=== PATIENT | female | born 1935 | race Caucasian/White ===

== ENCOUNTER 2019-01-26 13:16 | Emergency (ER) | payer OTHER ==
[2019-01-26 13:28] VITALS: BP 144/71; TEMP 97.5; BMI 24.5
--- NOTE | 2019-01-26 13:41 | ED.PDOC ---
General ED Provider: Dr. JOSE RODRIGUEZ Chief Complaint: Extremity Pain/Injury Stated Complaint: 83 YEARS OLD FEMALE REPORTS OF A 3 WEEKS ONGOING LEFT ARM NUMBESS AND PAIN. OT DENIED CHEST PAIN OR DISCOMFORT. NO INJURY IS REPORTED . PT IS NOT A DIABETIC Time Seen by Physician: 13:20 (CARMEN NICK R.N. PRESENT DURING THE EXAM AT ALL TIMES .PT DENIED FALL, INJURIES AND CHEST PAIN) Mode of Arrival: Walk-In Information Source: Patient Exam Limitations: No limitations (ON THE DAY OF THE VISIT THE LEFT UPPER EXT IS NEGATIVE FOR ANY NEUROVASCULAR ISSUES ) Primary Care Provider: ALYSSA GONZALEZ Nursing and Triage Documentation Reviewed and Agree: Yes Does patient meet sepsis criteria?: No System Inflammatory Response Syndrome: Not Applicable Sepsis Protocol: For patient's 13 years and over: Temp is 96.8 and below OR 101 and greater Pulse >90 BPM Resp >20/minute Acutely Altered Mental Status Are patient's symptoms suggestive of a new infection, such as: -Pneumonia -Skin, Soft Tissue -Endocarditis -UTI -Bone, Joint Infection -Implantable Device -Acute Abdominal Infection -Wound Infection -Meningitis -Blood Stream Catheter Infection -Unknown Musculoskeletal Complaint Exam - Upper Extremity Complaint/Exam Location of Pain: Reports: Left (ARM) Mechanism of Injury: Reports: No known trauma Onset/Duration: 21 DAYS Symptoms Are: Still present Timing: Constant Episodes Lasting: Weeks Initial Severity: Mild Current Severity: Mild Location: Reports: Discrete Character: Reports: Aching (, TINGLING NUMBNESS ) Aggravating: Reports: None Alleviating: Reports: None Related History: Reports: Similar episode (21 DAYS ) Non-Orthopedic Risk Factors: Reports: None DVT Risk Factors: Reports: None Septic Arthritis Risk Factors: Reports: Extremes of age Related Surgical History: Reports: None Upper Extremity Findings: Present: Tenderness. Absent: Swelling, Ecchymosis, Abnormal contour, Rotation, Ligamentous instability, Laceration, Erythema, Warmth, Blisters, Other joint pain, Foreign body, Limited range of motion Differential Diagnoses: Other (C/SPINE DISC DISEASE ) Review of Systems - Review Of Systems Constitutional: Reports: No symptoms Eyes: Reports: No symptoms Ears, Nose, Mouth, Throat: Reports: No symptoms Respiratory: Reports: No symptoms Cardiac: Reports: No symptoms GI: Reports: No symptoms : Reports: No symptoms Musculoskeletal: Reports: Other (C SPINE ) Skin: Reports: No symptoms Neurological: Reports: No symptoms Endocrine: Reports: No symptoms Hematologic/Lymphatic: Reports: No symptoms All Other Systems: Reviewed and Negative Past Medical History - Past Medical History Previously Healthy: Yes Endocrine: Reports: Hypothyroid, Dyslipidemia Cardiovascular: Reports: None Respiratory: Reports: None Hematological: Reports: None Gastrointestinal: Reports: None Genitourinary: Reports: None Neuro/Psych: Reports: None Musculoskeletal: Reports: None Cancer: Reports: None Last Menstrual Period: NA - Surgical History General Surgical History: Reports: None - Family History Family History: Reports: None - Social History Smoking Status: Former smoker Hx Substance Use: No Alcohol Screening: None Physical Exam - Physical Exam Appearance: Well-appearing, No pain distress, Well-nourished Eyes: JOSE MARTIN, EOMI, Conjunctiva clear ENT: Ears normal, Nose normal, Oropharynx normal Respiratory: Airway patent, Breath sounds clear, Breath sounds equal, Respirations nonlabored Cardiovascular: RRR, Pulses normal, No rub, No murmur GI/: Soft, Nontender, No masses, Bowel sounds normal, No Organomegaly Musculoskeletal: Normal strength (LEFT ARM DISTAL PULSES , RANGE OF MOTION ALL W.N.L. ), ROM intact, No edema, No calf tenderness Skin: Warm, Dry, Normal color Neurological: Sensation intact, Motor intact, Reflexes intact, Cranial nerves intact, Alert, Oriented Psychiatric: Affect appropriate, Mood appropriate Interpretation - Battery Vent Plug Inserter Rate: Normal Rhythm: Sinus Ectopy: None - EKG Interpretation Rate: Normal Rhythm: Sinus Ectopy: None (L.V.H) [place]: NL ST Segment: Normal Critical Care Note - Critical Care Note Total Time (mins): 0 Course - Course Orders, Labs, Meds: Orders Category Date Time Status EKG-(ED ONLY) Stat CARDIO 01/26/19 13:[address] CERVICAL SPINE W/O CONTRAST Stat RADS 01/26/19 13:37 Completed Vital Signs: Temp Pulse Resp BP Pulse Ox 01/26/19 13:18 97.5 F L 86 20 144/71 H 96 Departure - Departure Time of Disposition: 14:37 Disposition: HOME SELF-CARE Discharge Problem: Numbness and tingling in left arm Arm pain, chronic Qualifiers: Laterality: left Qualified Code(s): M79.602 - Pain in left arm Instructions: Paresthesia (ED), Arm Pain (ED) Condition: Good Pt referred to PMD for follow-up: Yes IPMP verified?: No Additional Instructions: Please call your Family Physician as soon as possible to schedule a follow-up appointment.SEE YOUR M.D.for follow up and M.R.I of the neck Allergies/Adverse Reactions: Allergies No Known Allergies Allergy (Verified 04/08/15 15:03) Home Medications: Ambulatory Orders Anastrozole [Arimidex] 1 mg PO DAILY 01/26/19 Levothyroxine Sodium [Synthroid] 50 mcg PO QDAC 01/26/19 Pravastatin Sodium [Pravachol] 40 mg PO BEDTIME 01/26/19 Disposition Discussed With: Patient
--- NOTE | 2019-01-26 14:19 | CT ---
EXAM: CT cervical spine without contrast. HISTORY: Arm numbness for 3 weeks COMPARISON: None TECHNIQUE: Serial axial images of the cervical spine were obtained from the skull base through the l su apices without contrast. These were viewed in multiple planes. FINDINGS: Vertebral bodies demonstrate no acute compression fracture or subluxation. There is strai ghtening of the cervical spine. There is multilevel disc space narrowing most pronounced from C5 thr ough at T2 with anterior posterior disc osteophytes. There is moderate facet arthropathy throughout the cervical spine. The odontoid process is intact with degenerative change at its articulation with C1. Posterior disc osteophyte and facet arthropathy at C4-C5 with moderate right neural foraminal narrowi ng. Disc space narrowing, posterior disc bulge and facet arthropathy at C5-C6 with moderate to sever e bilateral neural foraminal narrowing. IMPRESSION: 1. No acute compression fracture or subluxation. 2. 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 If further evaluatio n is clinically indicated, MRI may be obtained.
== END 2019-01-26 14:40 | disposition home or self-care (01) ==
LOC: ED 13:16
DX: R20.0 Anesthesia of skin (principal); M79.602 Pain in left arm; R20.2 Paresthesia of skin; E03.9 Hypothyroidism, unspecified; E78.5 Hyperlipidemia, unspecified; Z79.899 Other long term (current) drug therapy
CPT/HCPCS: 93005; 93010; 99283

== ENCOUNTER 2022-02-06 06:01 | Inpatient (IN) ==
--- NOTE | 2022-02-06 06:22 | ED.PDOC ---
General <BEN DOMINIQUE MD - Last Filed: 02/15/22 07:23> ED Provider: Dr. BEN DOMINIQUE Chief Complaint: Shortness of Air Stated Complaint: 3 days or so, getting worse today, cough, SOA, mild fever Time Seen by Provider: 02/06/22 06:21 Mode of Arrival: Walk-In Information Source: Patient and Family Exam Limitations: No limitations Primary Care Provider: ALYSSA GONZALEZ Nursing and Triage Documentation Reviewed and Agree: Yes Does patient meet sepsis criteria?: No System Inflammatory Response Syndrome: Not Applicable Sepsis Protocol: For patient's 13 years and over: Temp is 96.8 and below OR 101 and greater Pulse >90 BPM Resp >20/minute Acutely Altered Mental Status Are patient's symptoms suggestive of a new infection, such as: -Pneumonia -Skin, Soft Tissue -Endocarditis -UTI -Bone, Joint Infection -Implantable Device -Acute Abdominal Infection -Wound Infection -Meningitis -Blood Stream Catheter Infection -Unknown Respiratory Complaint Exam <BEN DOMINIQUE MD - Last Filed: 02/15/22 07:23> Shortness of Air Complaint/Exam Onset/Duration: 3 d Symptoms Are: Worse Timing: Constant Initial Severity: Mild Current Severity: Moderate Character: Reports Dyspnea at rest and Dyspnea on exertion Aggravating: Reports Deep breaths and Recumbent position Alleviating: Reports Upright position Associated Signs and Symptoms: Reports Cough, Fever, Nasal congestion and Labored breathing History of Healthcare-Acquired Pneumonia: No Pulmonary Embolism Risk Factors: Reports None Cardiac Risk Factors: Reports None Pseudomonas Risk Factors: Reports None Tuberculosis Risk Factors: Reports None Home Oxygen Use: No Recent Stress Test: No Recent Echo/LV Function: No Respiratory Distress: Moderate Stridor Present: No Tracheal Deviation: No Subcutaneous Emphysema: No Accessory Muscle Use: No Retractions: Not Present Diminished Breath Sounds: Yes Prolonged Expiratory Phase: No Unable to Speak Full Sentences: No Fatigue: Yes Leg Swelling: No Beronica's Sign Present: No Grunting Respirations: No Kussmaul Respirations: No Review of Systems <BEN DOMINIQUE MD - Last Filed: 02/15/22 07:23> Review Of Systems Constitutional: Reports Fever, Malaise and Weakness Eyes: Reports No symptoms Ears, Nose, Mouth, Throat: Reports No symptoms Respiratory: Reports Cough and Short of air Cardiac: Reports No symptoms GI: Reports No symptoms : Reports No symptoms Skin: Reports No symptoms Neurological: Reports No symptoms Endocrine: Reports No symptoms Hematologic/Lymphatic: Reports No symptoms All Other Systems: Reviewed and Negative PFSH <BEN DOMINIQUE MD - Last Filed: 02/15/22 07:23> Medical History (Updated 02/08/22 @ 14:05 by PANCHO ARANA) Chronic sinusitis Dementia Dyslipidemia Hypothyroidism Family History (Updated 02/06/22 @ 11:52 by PENG TEIXEIRA, RN) FATHER Myocardial infarct Social History (Updated 02/06/22 @ 11:53 by PENG TEIXEIRA, RN) Alcohol intake: never Surgical History (Updated 02/08/22 @ 08:30 by HARITHA GONZALEZ) History of hysterectomy for cancer Female Reproductive History Menstrual Hx Hysterectomy: No Hx Tubal Ligation: No Physical Exam <BEN DOMINIQUE MD - Last Filed: 02/15/22 07:23> Physical Exam Appearance: Reports Ill-appearing Ill-appearing: Moderate Pain Distress: None Eyes: Reports JOSE MARTIN ENT: Reports Oropharynx normal Neck: Supple Respiratory: Reports Airway patent and Rhonchi Cardiovascular: Reports RRR and Pulses normal GI/: Reports Soft and Nontender Musculoskeletal: Reports Normal strength, ROM intact and No edema Skin: Reports Warm and Dry Neurological: Reports Sensation intact, Motor intact and Alert Psychiatric: Reports Affect appropriate and Mood appropriate Physician Notification <BEN DOMINIQUE MD - Last Filed: 02/15/22 07:23> Case Discussed Endorsed To/Discussed With: Dr. Arreaga Time of Discussion: 07:00 Critical Care Note <BEN DOMINIQUE MD - Last Filed: 02/15/22 07:23> Critical Care Note Total Critical Care Time (mins): 0 Course <BEN DOMINIQUE MD - Last Filed: 02/15/22 07:23> Course Hematology/Chemistry: 02/09/22 04:55 02/09/22 04:55 Orders, Labs, Meds: Lab Review 02/06/22 02/06/22 02/06/22 06:10 06:25 06:25 WBC RBC Hgb Hct MCV MCH MCHC RDW Coeff of Mariah Plt Count Immature Gran % (Auto) Neut % (Auto) Lymph % (Auto) [place] % (Auto) Eos % (Auto) Baso % (Auto) Neut # (Auto) Lymph # (Auto) [place] # (Auto) Eos # (Auto) Baso # (Auto) Immature Gran # (Auto) Puncture Site Base Excess O2 Saturation ABG pH ABG pCO2 ABG pO2 ABG HCO3 ABG Total CO2 Jorge Test Hemoglobin Oxyhemoglobin Carboxyhemoglobin Total Hemoglobin FiO2 % Sodium Potassium Chloride Carbon Dioxide Anion Gap BUN Creatinine Estimated GFR (MDRD) BUN/Creatinine Ratio Glucose Calcium Total Bilirubin AST ALT Alkaline Phosphatase Troponin I NT-Pro-B Natriuret Pep Total Protein Albumin Globulin Albumin/Globulin Ratio Urine Color Yellow Urine Clarity Clear Urine pH 5.5 Ur Specific [place] >=1.030 Urine Protein Negative Urine Glucose (UA) Negative Urine Ketones Negative Urine Blood 1+ H Urine Nitrite Positive H Urine Bilirubin Negative Urine Urobilinogen 0.2 Ur Leukocyte Esterase 1+ H Urine Microscopic RBC 5-10 Urine Microscopic WBC 30-50 Ur Squamous Epith Cells 30-50 Urine Bacteria 4+ Urine Mucus 1+ Influ A Molecular Assay Negative by naat Influ B Molecular Assay Negative by naat SARS-CoV-2 Ag (Rapid) Negative 02/06/22 02/06/22 02/06/22 06:37 06:37 06:37 WBC 8.46 RBC 4.06 L Hgb 12.6 Hct 37.7 MCV 92.9 MCH 31.0 MCHC 33.4 RDW Coeff of Mariah 12.7 Plt Count 297 Immature Gran % (Auto) 0.2 Neut % (Auto) 74.2 Lymph % (Auto) 15.0 [place] % (Auto) 9.6 Eos % (Auto) 0.5 Baso % (Auto) 0.5 Neut # (Auto) 6.3 Lymph # (Auto) 1.3 [place] # (Auto) 0.8 Eos # (Auto) 0.0 Baso # (Auto) 0.0 Immature Gran # (Auto) 0.0 Puncture Site Base Excess O2 Saturation ABG pH ABG pCO2 ABG pO2 ABG HCO3 ABG Total CO2 Jorge Test Hemoglobin Oxyhemoglobin Carboxyhemoglobin Total Hemoglobin FiO2 % Sodium 138.0 Potassium 3.45 L Chloride 108.2 H Carbon Dioxide 21.2 L Anion Gap 12.05 BUN 21.0 H Creatinine 0.66 Estimated GFR (MDRD) 85.00 BUN/Creatinine Ratio 31.81 Glucose 144.4 H Calcium 9.29 Total Bilirubin 0.55 AST 26.7 ALT 19.9 Alkaline Phosphatase 71.8 Troponin I < 0.012 NT-Pro-B Natriuret Pep 282.000 Total Protein 7.27 Albumin 4.24 Globulin 3.03 Albumin/Globulin Ratio 1.39 Urine Color Urine Clarity Urine pH Ur Specific [place] Urine Protein Urine Glucose (UA) Urine Ketones Urine Blood Urine Nitrite Urine Bilirubin Urine Urobilinogen Ur Leukocyte Esterase Urine Microscopic RBC Urine Microscopic WBC Ur Squamous Epith Cells Urine Bacteria Urine Mucus Influ A Molecular Assay Influ B Molecular Assay SARS-CoV-2 Ag (Rapid) 02/06/22 07:02 WBC RBC Hgb Hct MCV MCH MCHC RDW Coeff of Mariah Plt Count Immature Gran % (Auto) Neut % (Auto) Lymph % (Auto) [place] % (Auto) Eos % (Auto) Baso % (Auto) Neut # (Auto) Lymph # (Auto) [place] # (Auto) Eos # (Auto) Baso # (Auto) Immature Gran # (Auto) Puncture Site Rb Base Excess -2.3 L O2 Saturation 98.4 H ABG pH 7.55 H* ABG pCO2 23.0 L ABG pO2 98.0 ABG HCO3 20.1 L ABG Total CO2 20.8 Jorge Test + Hemoglobin 1.4 Oxyhemoglobin 95.8 Carboxyhemoglobin 1.9 H Total Hemoglobin 12.6 FiO2 % 21.0 Sodium Potassium Chloride Carbon Dioxide Anion Gap BUN Creatinine Estimated GFR (MDRD) BUN/Creatinine Ratio Glucose Calcium Total Bilirubin AST ALT Alkaline Phosphatase Troponin I NT-Pro-B Natriuret Pep Total Protein Albumin Globulin Albumin/Globulin Ratio Urine Color Urine Clarity Urine pH Ur Specific [place] Urine Protein Urine Glucose (UA) Urine Ketones Urine Blood Urine Nitrite Urine Bilirubin Urine Urobilinogen Ur Leukocyte Esterase Urine Microscopic RBC Urine Microscopic WBC Ur Squamous Epith Cells Urine Bacteria Urine Mucus Influ A Molecular Assay Influ B Molecular Assay SARS-CoV-2 Ag (Rapid) Orders Category Date Time Status ADMIT PATIENT INPATIENT .TO [facility] (MONITORED BED) ADMISSION 02/06/22 10:56 Completed ABG DRAW REQUEST Stat CARDIO 02/06/22 06:27 Completed EKG-(ED ONLY) Stat CARDIO 02/06/22 06:28 Completed ACTIVITY .Up With Assistance CARE 02/06/22 11:01 Completed INTAKE & OUTPUT Q8HR CARE 02/06/22 10:58 Completed IP: INSERT SALINE LOCK ONCE CARE 02/06/22 10:58 Completed TELEMETRY MONITORING TELE CARE 02/06/22 10:58 Completed VITAL SIGNS Q8HR CARE 02/06/22 10:58 Completed ABG COOX Stat LAB 02/06/22 07:02 Completed CBC W/ AUTO DIFF DAILY@0600 LAB 02/07/22 04:57 Completed CBC W/ AUTO DIFF DAILY@0600 LAB 02/08/22 05:00 Completed CBC W/ AUTO DIFF Stat LAB 02/06/22 06:37 Completed COMPREHENSIVE METABOLIC PANEL DAILY@0600 LAB 02/07/22 04:57 Completed COMPREHENSIVE METABOLIC PANEL DAILY@0600 LAB 02/08/22 05:00 Completed COMPREHENSIVE METABOLIC PANEL Stat LAB 02/06/22 06:37 Completed COVID-19 ANTIGEN TEST Stat LAB 02/06/22 06:25 Completed FLU A/B MOLECULAR Stat LAB 02/06/22 06:25 Completed MOLECULAR GROUP A STREP Stat LAB 02/06/22 06:25 Completed NT-PROBNP Stat LAB 02/06/22 06:37 Completed TROPONIN I Stat LAB 02/06/22 06:37 Completed URINALYSIS C & S IF INDICATED Stat LAB 02/06/22 06:10 Completed URINE CULTURE Stat LAB 02/06/22 06:10 Completed Acetaminophen [Tylenol] MEDS 02/06/22 08:00 Discontinued 650 mg PO ONCE ONE Acetaminophen [Tylenol] MEDS 02/06/22 11:01 Discontinued 650 mg PO Q8H PRN Ceftriaxone/D5w 1 gm Premix [Rocephin 1 gm/50 ml D5w] MEDS 02/07/22 09:00 Discontinued 1 gm in 50 ml IV DAILY Ceftriaxone/D5w 1 gm Premix [Rocephin 1 gm/50 ml D5w] MEDS 02/06/22 08:00 Disc ontinued 1 gm in 50 ml IV ONCE Potassium Chloride [K-Dur] MEDS 02/06/22 08:00 Discontinued 20 meq PO ONCE ONE Prednisone MEDS 02/06/22 11:30 Discontinued 20 mg PO DAILYWM Ringers Lactated Solution [Lactated Ringers] 1,000 ml MEDS 02/06/22 08:00 Discontinued IV BOLUS Sodium Chloride 0.9% [Sodium Chloride] 1,000 ml MEDS 02/06/22 11:30 Discontinued IV 75 mls/hr RESUSCITATION STATUS Routine OTHERS 02/06/22 10:56 Completed CHEST, 1V AP ONLY Stat RADS 02/06/22 06:24 Completed Medications Discontinued Medications Generic Name Dose Route Start Last Admin Trade Name Freq PRN Reason Stop Dose Admin Acetaminophen 650 mg 02/06/22 08:00 02/06/22 08:18 Acetaminophen 325 Mg Tablet PO 02/06/22 08:01 650 mg ONCE ONE Administration Acetaminophen 650 mg 02/06/22 11:01 Acetaminophen 325 Mg Tablet PO Q8H PRN Mild Pain Alprazolam 0.25 mg 02/08/22 20:00 02/08/22 20:44 Alprazolam 0.25 Mg Tablet PO 0.25 mg DAILY PRN Administration Anxiety Anastrozole 1 mg 02/07/22 09:00 02/09/22 09:29 Anastrozole 1 Mg Tablet PO 1 mg DAILY VALERIE Administration Dexamethasone Sodium Phosphate 4 mg 02/08/22 08:38 02/08/22 09:50 Dexamethasone Sod Phos 4 Mg/Ml Inj IM 02/08/22 08:39 4 mg ONCE ONE Administration Fluticasone Propionate 2 spray 02/08/22 10:30 02/09/22 09:29 Fluticasone Propionate 16 Gm Nasal [place] VALE 2 spray BID VALERIE Administration Guaifenesin 600 mg 02/08/22 09:00 02/09/22 09:29 Guaifenesin 600 Mg Tablet.Er PO 600 mg Q12HR VALERIE Administration CEFTRIAXONE/D5W 1 GM PREMIX 1 gm in 50 mls @ 75 mls/hr 02/06/22 08:00 02/06/22 08:13 Rocephin 1 Gm/50 Ml D5w IV 02/06/22 08:39 75 mls/hr ONCE ONE Administration Lactated Ringer's 1,000 mls @ 500 mls/hr 02/06/22 08:00 02/06/22 08:14 Lactated Ringers IV 02/06/22 09:59 500 mls/hr BOLUS STA Administration Sodium Chloride 1,000 mls @ 75 mls/hr 02/06/22 11:30 02/07/22 01:21 Sodium Chloride IV 75 mls/hr .[id number] VALERIE Administration CEFTRIAXONE/D5W 1 GM PREMIX 1 gm in 50 mls @ 75 mls/hr 02/07/22 09:00 02/09/22 09:29 Rocephin 1 Gm/50 Ml D5w IV 02/10/22 08:59 75 mls/hr DAILY VALERIE Administration Levothyroxine Sodium 50 mcg 02/07/22 06:30 02/09/22 05:52 Levothyroxine Sodium 50 Mcg Tablet PO 50 mcg QDAC VALERIE Administration Potassium Chloride 20 meq 02/06/22 08:00 02/06/22 08:13 Potassium Chloride 20 Meq Tab PO 02/06/22 08:01 20 meq ONCE ONE Administration Pravastatin Sodium 40 mg 02/06/22 21:00 02/08/22 20:28 Pravastatin Sodium 40 Mg Tablet PO 40 mg BEDTIME VALERIE Administration Prednisone 20 mg 02/06/22 11:30 02/09/22 09:29 Prednisone 20 Mg Tablet PO 20 mg DAILYWM VALERIE Administration Sodium Chloride 1 syr 02/07/22 21:00 02/09/22 13:41 0.9% Sodium Chloride 10 Ml Disp.Syrin IVF 1 syr Q8HR VALERIE Administration Vital Signs: Temp Pulse Resp BP Pulse Ox 02/06/22 09:35 98.9 F 79 18 119/72 96 02/06/22 08:41 82 19 132/75 100 02/06/22 06:04 100.8 F H 117 H 24 175/79 H 96 Discharge Plan Discharge Patient Disposition: ADMITTED INPATIENT Discharge Problem: UTI (urinary tract infection) ED Provider: YESSENIA ARREAGA Condition: Stable <BEN DOMINIQUE MD - Last Filed: 02/15/22 07:23> Physician Progress Note: [Turned over to next ER physician, Dr. Arreaga.]
[2022-02-06 06:41] LABS: BASOPHILS % (AUTO) 0.5 % (0.0-3.0); EOSINOPHILS % (AUTO) 0.5 % (0.0-7.0); HEMATOCRIT 37.7 % (37.0-47.0); HEMOGLOBIN 12.6 g/dl (12.0-16.0); IMMATURE GRANULOCYTE % (AUTO) 0.2 % (0.0-5.0); LYMPHOCYTES # (AUTO) 1.3 K/uL (0.60-3.4); MEAN CORPUSCULAR HGB CONC 33.4 (31.8-35.4); MEAN CORPUSCULAR VOLUME 92.9 fl (81.0-99.0); MONOCYTES # (AUTO) 0.8 K/uL (0.4-2.0); MONOCYTES % (AUTO) 9.6 (0-10); NEUTROPHILS # (AUTO) 6.3 K/ul (2.0-6.9); NEUTROPHILS % (AUTO) 74.2 % (42.2-75.2); PLATELET COUNT 297 10^3/uL (140-440); RDW COEFFICIENT OF VARIATION 12.7 % (11.6-14.8); RED BLOOD COUNT 4.06 10^6/ul (4.20-5.40); WHITE BLOOD COUNT 8.46 K/ul (4.6-10.2)
[2022-02-06 06:49] LABS: BILIRUBIN,URINE Negative (NEGATIVE); CLARITY,URINE Clear (CLEAR); COLOR,URINE Yellow (YELLOW); GLUCOSE, URINE (UA) Negative (NEGATIVE); KETONES,URINE Negative (NEGATIVE); LEUKOCYTE ESTERASE ,URINE 1+ (NEGATIVE); NITRITE,URINE Positive (NEGATIVE); PH,URINE 5.5 (5-9); PROTEIN,URINE Negative (NEGATIVE); URINE, BLOOD 1+ (NEGATIVE); UROBILINOGEN,URINE 0.2 (0.2)
[2022-02-06 06:50] LABS: MOLECULAR FLU A NEGATIVE BY NAAT (NEGATIVE); MOLECULAR FLU B NEGATIVE BY NAAT (NEGATIVE)
[2022-02-06 06:53] LABS: BACTERIA,URINE 4+ (NOT PRESENT); MUCUS,URINE 1+ (NOT PRESENT); SQUAMOUS EPITHELIAL CELL,UR 30-50 (0-5); URINE WBC, MICROSCOPIC 30-50 (0-2)
[2022-02-06 06:54] LABS: ALANINE AMINOTRANSFERASE 19.9 U/L (0-35); ALBUMIN 4.24 g/dL (3.5-5.0); ALKALINE PHOSPHATASE 71.8 U/L (53-141); ASPARTATE AMINO TRANSFERASE 26.7 U/L (14-36); BILIRUBIN,TOTAL 0.55 mg/dL (0.2-1.3); CALCIUM 9.29 mg/dL (8.4-10.2); CARBON DIOXIDE 21.2 mmol/L (22-30.0); CHLORIDE 108.2 mmol/L (98-107); CREATININE 0.66 mg/dL (0.60-1.30); GLUCOSE 144.4 mg/dL (74-106); POTASSIUM 3.45 mmol/L (3.5-5.1); TOTAL PROTEIN 7.27 g/dL (6.3-8.2)
[2022-02-06 07:06] LABS: TROPONIN I < 0.012 ng/ml (0.0000-0.120)
[2022-02-06 07:15] LABS: ABG O2 HGB 95.8 % (95-100); BEecf -2.3 (-2.0-3.0); COHb 1.9 (0.5-1.5); HCO3 20.1 (21-28); MetHb 1.4 (0-1.5); TCO2 20.8 (19-24); sO2 98.4 % (94-98); tHb 12.6 g/dl (11.7-17.4)
--- NOTE | 2022-02-06 07:17 | DI ---
Examination: Single view chest. HISTORY: Dyspnea. COMPARISON: 03/10/2021. FINDINGS: Relative low lung volumes with elevation of the right hemidiaphragm. The cardiomediastina l silhouette appears mildly enlarged. There is no pulmonary edema. Atherosclerosis. Surgical clips project in the left chest and left axilla. Old granulomatous disease. No acute consolidation. No significant pleural effusion. Cholecystectomy clips. Scoliosis and degenerative changes in the spin e. Abdominal aortic atherosclerosis also noted. Osseous structures are without significant abnormali ty. IMPRESSION: No acute cardiopulmonary abnormality. Mild cardiac enlargement with atherosclerosis. Old granulomatous disease. Elevation of the right hemidiaphragm. Postsurgical changes to the left chest wall and axilla.
[2022-02-06 07:18] LABS: ABG PH 7.55 (7.35-7.45)
[2022-02-06] MEDS ORDERED: LACTATED RINGERS 1,000 ML IV STA (08:00)
[2022-02-06] MEDS ORDERED: TYLENOL PO ONE (08:00)
[2022-02-06] MEDS ORDERED: ROCEPHIN 1 GM/50 ML D5W 1 GM/50 ML BAG IV ONE (08:00)
[2022-02-06] MEDS ORDERED: K-DUR PO ONE (08:00)
[2022-02-06] MEDS ORDERED: TYLENOL PO PRN (11:01)
[2022-02-06 11:46] VITALS: BMI 21.6
[2022-02-06] MEDS: SODIUM CHLORIDE 1,000 ML IV SCH (13:40)
[2022-02-06] MEDS: PREDNISONE PO SCH (13:41)
[2022-02-06] MEDS: PRAVACHOL PO SCH (21:36)
[2022-02-07] MEDS: SODIUM CHLORIDE 1,000 ML IV SCH (01:21)
[2022-02-07 05:23] LABS: BASOPHILS % (AUTO) 0.2 % (0.0-3.0); HEMATOCRIT 36.8 % (37.0-47.0); IMMATURE GRANULOCYTE % (AUTO) 0.3 % (0.0-5.0); LYMPHOCYTES # (AUTO) 2.4 K/uL (0.60-3.4); LYMPHOCYTES % (AUTO) 20.7 (10.0-50.0); MEAN CORPUSCULAR HEMOGLOBIN 30.5 pg (27.0-31.0); MEAN CORPUSCULAR HGB CONC 32.6 (31.8-35.4); MEAN CORPUSCULAR VOLUME 93.6 fl (81.0-99.0); MONOCYTES % (AUTO) 8.6 (0-10); NEUTROPHILS # (AUTO) 8.1 K/ul (2.0-6.9); NEUTROPHILS % (AUTO) 70.2 % (42.2-75.2); PLATELET COUNT 314 10^3/uL (140-440); RDW COEFFICIENT OF VARIATION 12.9 % (11.6-14.8); RED BLOOD COUNT 3.93 10^6/ul (4.20-5.40); WHITE BLOOD COUNT 11.51 K/ul (4.6-10.2)
[2022-02-07] MEDS: SYNTHROID PO SCH (05:48)
[2022-02-07 06:25] LABS: ALANINE AMINOTRANSFERASE 17.5 U/L (0-35); ALBUMIN 3.68 g/dL (3.5-5.0); ALKALINE PHOSPHATASE 64.7 U/L (53-141); ASPARTATE AMINO TRANSFERASE 25.2 U/L (14-36); BILIRUBIN,TOTAL 0.46 mg/dL (0.2-1.3); BLOOD UREA NITROGEN 13.5 mg/dL (7-17); CALCIUM 8.92 mg/dL (8.4-10.2); CARBON DIOXIDE 21.4 mmol/L (22-30.0); CHLORIDE 111.1 mmol/L (98-107); CREATININE 0.57 mg/dL (0.60-1.30); POTASSIUM 4.3 mmol/L (3.5-5.1); SODIUM 136.8 mmol/L (134.5-145); TOTAL PROTEIN 6.49 g/dL (6.3-8.2)
[2022-02-07] MEDS: ROCEPHIN 1 GM/50 ML D5W 1 GM/50 ML BAG IV SCH (08:27)
[2022-02-07] MEDS: PREDNISONE PO SCH (08:27)
[2022-02-07] MEDS: ARIMIDEX PO SCH (08:27)
[2022-02-07] MEDS: PRAVACHOL PO SCH (21:24)
[2022-02-08 05:38] LABS: BASOPHILS % (AUTO) 0.2 % (0.0-3.0); EOSINOPHILS % (AUTO) 0.2 % (0.0-7.0); HEMOGLOBIN 12.4 g/dl (12.0-16.0); IMMATURE GRANULOCYTE % (AUTO) 0.3 % (0.0-5.0); LYMPHOCYTES # (AUTO) 3.3 K/uL (0.60-3.4); MEAN CORPUSCULAR HEMOGLOBIN 30.8 pg (27.0-31.0); MEAN CORPUSCULAR HGB CONC 32.6 (31.8-35.4); MEAN CORPUSCULAR VOLUME 94.5 fl (81.0-99.0); MONOCYTES # (AUTO) 1.2 K/uL (0.4-2.0); MONOCYTES % (AUTO) 9.3 (0-10); NEUTROPHILS # (AUTO) 8.2 K/ul (2.0-6.9); PLATELET COUNT 332 10^3/uL (140-440); RDW COEFFICIENT OF VARIATION 13.2 % (11.6-14.8); RED BLOOD COUNT 4.02 10^6/ul (4.20-5.40); WHITE BLOOD COUNT 12.73 K/ul (4.6-10.2)
[2022-02-08] MEDS: SYNTHROID PO SCH (05:52)
[2022-02-08 05:55] LABS: ALANINE AMINOTRANSFERASE 22.2 U/L (0-35); ALBUMIN 3.99 g/dL (3.5-5.0); ALKALINE PHOSPHATASE 57.7 U/L (53-141); ASPARTATE AMINO TRANSFERASE 31.1 U/L (14-36); BILIRUBIN,TOTAL 0.4 mg/dL (0.2-1.3); BLOOD UREA NITROGEN 17.9 mg/dL (7-17); CALCIUM 9.15 mg/dL (8.4-10.2); CARBON DIOXIDE 22.6 mmol/L (22-30.0); CHLORIDE 109.3 mmol/L (98-107); CREATININE 0.62 mg/dL (0.60-1.30); GLUCOSE 105.7 mg/dL (74-106); POTASSIUM 4.01 mmol/L (3.5-5.1); SODIUM 136.8 mmol/L (134.5-145); TOTAL PROTEIN 7.01 g/dL (6.3-8.2)
[2022-02-08] MEDS ORDERED: DECADRON IM ONE (08:38)
--- NOTE | 2022-02-08 08:58 | PCM.PROG ---
Attending Provider: ATTENDING PROVIDER: Dr. ALYSSA GONZALEZ This patient is seen with Char Linder, Nurse Practitioner. DATE OF SERVICE: 02/08/22 SUBJECTIVE: This 86 year old /WHITE F was hospitalized 02/06/22. The patient is pleasantly confused this morning. Little bit of a cough. No fever. Complaining of sinus drainage. REVIEW OF SYSTEMS: CONSTITUTIONAL: No night sweats. No fatigue, malaise, lethargy. No fever or chills. HEENT: Eyes: No visual changes. No eye pain. No eye discharge. ENT: No runny nose. No epistaxis. Sinus drainage. No odynophagia. No congestion. RESPIRATORY: Cough, no congestion. No hemoptysis. No shortness of breath. Hard of hearing. CARDIOVASCULAR: No angina symptoms. No CHF symptoms. No atypical chest pain for CAD. No palpitations. No orthopnea.. GASTROINTESTINAL: No abdominal pain. No nausea or vomiting. No diarrhea or constipation. No hematemesis. No hematochezia. GENITOURINARY: No urgency. No frequency. No dysuria. No hematuria. No obstructive symptoms. No discharge. No pain. No significant abnormal bleeding. MUSCULOSKELETAL: No musculoskeletal pain; no joint swelling. NEUROLOGICAL: Awake, alert, intermittent confusion. No headache. No neck pain. No syncope. No seizures. No dizziness. PSYCHIATRIC: Not anxious. No depression. No suicidal thoughts. No homicidal thoughts. SKIN: No rash. No lesions. No wounds. ENDOCRINE: No unexplained weight loss. No weight gain. HEMATOLOGIC/LYMPHATIC: No anemia. No purpura. No petechiae. No prolonged or excessive bleeding. No palpable lymph nodes. PHYSICAL EXAMINATION: GENERAL: The patient is awake, alert and oriented to person and place, sitting in bed in no distress. VITAL SIGNS: Temperature 97.8 F, Pulse 93, Respiratory Rate 16, BP 142/81, Pulse Ox 97% HEENT: Head normocephalic, atraumatic. Eyes: Extraocular muscles are intact. Pupils are equal, round and reactive to light and accommodation. Ears: No lesions. Nose appeared normal. Throat: No exudate or erythema. NECK: Supple. No JVD, no carotid bruit. No lymphadenopathy or thyromegaly. LUNGS: Diminished breath sounds. Clear to auscultation. Percussion note normal. Chest symmetrical. HEART: S1, S2, no S3. No murmurs. No cyanosis or clubbing. No ascites. Pulses: Dorsalis pedis and posterior tibial pulses +1 to +2 both sides. ABDOMEN: Soft. Non-tender. Bowel sounds active. No CVA tenderness. No mass felt. EXTREMITIES: No edema. Full range of motion of all extremities, equal. NEUROLOGIC: No focal deficit. Cranial nerves II through XII are grossly intact. No headache. No double vision. SKIN: Not dry. Intact. Turgor-normal. LYMPHATIC: No palpable lymph nodes/no lymphedema. MUSCULOSKELETAL: Normal joints with no swelling. Muscle tone is normal. LAB REVIEW: 02/08/22 05:00 02/08/22 05:00 02/08/22 05:00: Sodium 136.8, Potassium 4.01, Chloride 109.3 H, Carbon Dioxide 22.6, Anion Gap 8.91, BUN 17.9 H, Creatinine 0.62, Estimated GFR (MDRD) 91.00, BUN/Creatinine Ratio 28.87, Glucose 105.7, Calcium 9.15, Total Bilirubin 0.40, AST 31.1, ALT 22.2, Alkaline Phosphatase 57.7, Total Protein 7.01, Albumin 3.99, Globulin 3.02, Albumin/Globulin Ratio 1.32 02/08/22 05:00: WBC 12.73 H, RBC 4.02 L, Hgb 12.4, Hct 38.0, MCV 94.5, MCH 30.8, MCHC 32.6, RDW Coeff of Mariah 13.2, Plt Count 332, Immature Gran % (Auto) 0.3, Neut % (Auto) 64.0, Lymph % (Auto) 26.0, [place] % (Auto) 9.3, Eos % (Auto) 0.2, Baso % (Auto) 0.2, Neut # (Auto) 8.2 H, Lymph # (Auto) 3.3, [place] # (Auto) 1.2, Eos # (Auto) 0.0, Baso # (Auto) 0.0, Immature Gran # (Auto) 0.0 ASSESSMENT: Please see below. 1. UTI positive e-coli 2. Acute sinusitis 3. Dementia 4. Dehydration, improved PLAN: 1. Quaifenesin BID 2. 4mg Decadron IM 3. T4 TSH 4. Respiratory panel Plan and coordination of the patient's care discussed in the presence of Construction Mill[employer] and nurse. SCRIBED BY: Silva SCHMIDTist scribed while in presence of service performed by Dr. Gonzalez/Char Linder APRN on 02/08/22 ([id number])
[2022-02-08] MEDS: PREDNISONE PO SCH (09:30)
[2022-02-08] MEDS: ARIMIDEX PO SCH (09:30)
[2022-02-08] MEDS: ROCEPHIN 1 GM/50 ML D5W 1 GM/50 ML BAG IV SCH (09:32)
[2022-02-08] MEDS: MUCINEX PO SCH ×2 (09:45→20:28)
[2022-02-08 09:47] LABS: BORDETELLA PARAPERTUSSIS (PCR) NOT DETECTED (NOT DETECT); BORDETELLA PERTUSSIS (PCR) NOT DETECTED (NOT DETECT); CHLAMYDIA PNEUMONIAE (PCR) NOT DETECTED (NOT DETECT); CORONAVIRUS 229E (PCR) NOT DETECTED (NOT DETECT); CORONAVIRUS HKU1 (PCR) NOT DETECTED (NOT DETECT); CORONAVIRUS NL63 (PCR) NOT DETECTED (NOT DETECT); CORONAVIRUS OC43 (PCR) NOT DETECTED (NOT DETECT); HUMAN METAPNEUMOVIRUS (PCR) NOT DETECTED (NOT DETECT); HUMAN RHINOVIRUS/ENTEROV (PCR) NOT DETECTED (NOT DETECT); INFLUENZA B (PCR) NOT DETECTED (NOT DETECT); MYCOPLASMA PNEUMONIAE (PCR) NOT DETECTED (NOT DETECT); PARAINFLUENZA VIRUS 1 (PCR) NOT DETECTED (NOT DETECT); PARAINFLUENZA VIRUS 2 (PCR) NOT DETECTED (NOT DETECT); PARAINFLUENZA VIRUS 3 (PCR) NOT DETECTED (NOT DETECT); PARAINFLUENZA VIRUS 4 (PCR) NOT DETECTED (NOT DETECT); RESPIRATORY SYNCYTIAL V (PCR) NOT DETECTED (NOT DETECT); SARS_COV_2 (PCR) NOT DETECTED (NOT DETECT)
[2022-02-08 10:37] LABS: ADENOVIRUS (PCR) NOT DETECTED (NOT DETECT)
[2022-02-08] MEDS: FLONASE NAS SCH ×2 (11:24→20:28)
--- NOTE | 2022-02-08 11:26 | HP ---
DATE OF SERVICE: 02/06/22 REASON FOR HOSPITALIZATION: Urinary tract infection, sinusitis, fever, weakness and confusion HISTORY OF PRESENT ILLNESS: 86 year old white female was brought to the emergency room by a friend because of the patient having sinus type of headache, UTI on further investigation and has been more confused with fatigue and weakness. Duration of symptoms is 3-4 days. It is to be noted that the patient is confused but very poor historian. PAST MEDICAL HISTORY/PAST SURGICAL HISTORY: History of C of the breast Hypothyroidism Hyperlipidemia Dementia REVIEW OF SYSTEMS: CONSTITUTIONAL: No night sweats. Fatigue and weakness. No fever or chills. HEENT: Eyes: No visual changes. No eye pain. No eye discharge. ENT: No runny nose. No epistaxis. Sinus drainage. No sore throat. No odynophagia. No ear pain. No congestion. RESPIRATORY: Mild cough, no congestion. No hemoptysis. No shortness of breath. CARDIOVASCULAR: No angina symptoms. No CHF symptoms. No atypical chest pain for CAD. No palpitations. No PND. No orthopnea. GASTROINTESTINAL: No abdominal pain. No nausea or vomiting. No diarrhea or constipation. No hematemesis. No hematochezia. Poor appetite. GENITOURINARY: No urgency. No frequency. No dysuria. No hematuria. No obstructive symptoms. No discharge. No pain. No significant abnormal bleeding. MUSCULOSKELETAL: No musculoskeletal pain. No joint swelling. No arthritis. Generalized weakness. NEUROLOGICAL: No headache. No neck pain. No syncope. No seizures. No dizziness. PSYCHIATRIC: Not anxious. No depression. No suicidal thoughts. No homicidal thoughts. SKIN: No rash. No lesions. No wounds. ENDOCRINE: No unexplained weight loss. No weight gain. HEMATOLOGIC/LYMPHATIC: No anemia. No purpura. No petechiae. No prolonged or excessive bleeding. No palpable lymph nodes. PERSONAL/FAMILY/SOCIAL HISTORY: The patient lives by herself with help of friend. Nonsmoker and no alcohol abuse. Tries to do all activity of daily living. MEDICATIONS: Anastrozole Arimidex 1mg PO daily Levothyroxine 50mcg PO daily Pravastatin 40mg PO daily ALLERGIES: None PHYSICAL EXAMINATION: VITAL SIGNS: Temperature 98.5, pulse 87, respiratory rate 24, blood pressure 119/17 and pulse ox 97%. HEENT: Head normocephalic, atraumatic. Eyes: Extraocular muscles are intact. Pupils are equal, round and reactive to light and accommodation. Ears: No lesions. Nose appeared normal. Throat: No exudate or erythema. Looks somewhat pale. NECK: Supple. No JVD, no carotid bruit. No lymphadenopathy or thyromegaly. LUNGS: Clear to auscultation. Percussion note normal. Chest symmetrical. HEART: S1, S2, no S3. No murmur. No cyanosis or clubbing. No ascites. Pulses: Dorsalis pedis and posterior tibial pulses +1 to +2 bilaterally. ABDOMEN: Soft. Nontender. Bowel sounds active. No CVA tenderness. No mass felt. EXTREMITIES: No edema. Full range of motion of all extremities, equal. NEUROLOGIC: No focal deficit. Cranial nerves II through XII are grossly intact. No headache, no double vision or headache. SKIN: Dry. Intact. Turgor - normal. Mucous membrane. LYMPHATIC: No palpable lymph nodes/no lymphedema. MUSCULOSKELETAL: Normal joints with no swelling. Muscle tone is normal. LABS: Hgb 12.6, hct 37, WBC 8,400 normal differential, creatinine 0.6, BUN 21, potassium 3.4. ABG pO2 98, pCo2 23, pH 7.55 with 98% saturation on room air. PROBNP 282. Troponin negative. U/A abnormal. ASSESSMENT: 1. UTI 2. Dehydration 3. Sinusitis with possible early bronchitis 4. Dementia 5. C of the breast 6. Dyslipidemia 7. Hypothyroidism 8. Hypokalemia PLAN: 1. IV fluids 2. Rocephin 1 gram Q 24 3. Prednisone 20mg PO daily 4. Continue all home medication 5. The patient is encouraged to eat 6. Will monitor CBC and CMP 7. Will monitor telemetry TIME SPENT: More than 70 minutes. MTDD
--- NOTE | 2022-02-08 11:30 | PN ---
DATE OF SERVICE: 02/07/22 SUBJECTIVE: 86 year old white female hospitalized with UTI and sinusitis. The patient's condition has improved. Her appetites seems to have improved. She says that she is feeling better. Seems to be confused with date and day. REVIEW OF SYSTEMS: CONSTITUTIONAL: No night sweats. No fatigue, malaise, lethargy. No fever or chills. HEENT: Eyes: No visual changes. No eye pain. No eye discharge. ENT: No runny nose. No epistaxis. No sinus pain. No sore throat. No odynophagia. No congestion. RESPIRATORY: No cough, no congestion. No hemoptysis. No shortness of breath. CARDIOVASCULAR: No angina symptoms. No CHF symptoms. No atypical chest pain for CAD. No palpitations. No PND. No orthopnea. GASTROINTESTINAL: No abdominal pain. No nausea or vomiting. No diarrhea or constipation. No hematemesis. No hematochezia. GENITOURINARY: No urgency. No frequency. No dysuria. No hematuria. No obstructive symptoms. No discharge. No pain. No significant abnormal bleeding. MUSCULOSKELETAL: No musculoskeletal pain; no joint swelling. NEUROLOGICAL: No headache. No neck pain. No syncope. No seizures. No dizziness. PSYCHIATRIC: Not anxious. No depression. No suicidal thoughts. No homicidal thoughts. SKIN: No rash. No lesions. No wounds. ENDOCRINE: No unexplained weight loss. No weight gain. HEMATOLOGIC/LYMPHATIC: No anemia. No purpura. No petechiae. No prolonged or excessive bleeding. No palpable lymph nodes. PHYSICAL EXAMINATION: VITAL SIGNS: Temperature 97.5, pulse 76, respiratory rate 16, blood pressure 129/70 and pulse ox 97%. HEENT: Head normocephalic, atraumatic. Eyes: Extraocular muscles are intact. Pupils are equal, round and reactive to light and accommodation. Ears: No lesions. Nose appeared normal. Throat: No exudate or erythema. NECK: Supple. No JVD, no carotid bruit. No lymphadenopathy or thyromegaly. LUNGS: Decreased breath sounds but clear to auscultation. Percussion note normal. Chest symmetrical. HEART: S1, S2, no S3. No murmurs. No cyanosis or clubbing. No ascites. Pulses: Dorsalis pedis and posterior tibial pulses +1 to +2 bilaterally. ABDOMEN: Soft. Nontender. Bowel sounds active. No CVA tenderness. No mass felt. EXTREMITIES: No edema. Full range of motion of all extremities, equal. NEUROLOGIC: No focal deficit. Cranial nerves II through XII are grossly intact. No headache. No double vision. SKIN: Not dry. Intact. Turgor - normal. LYMPHATIC: No palpable lymph nodes/no lymphedema. MUSCULOSKELETAL: Normal joints with no swelling. Muscle tone is normal. LABS: Hgb 12, hct 36, WBC 11,000 normal differential, creatinine 0.5, BUN 13, potassium 4.3 ASSESSMENT: 1. UTI seems to be resolving 2. Dehydration seems to have resolved with improvement in kidney function with BUN now 13 from 21. 3. Hypokalemia, resolved with potassium 4.3 4. Dementia PLAN: 1. Continue IV antibiotics and IV fluids 2. The patient's appetite has improved TIME SPENT: More than 30 minutes. Plan and coordination of the patient's care discussed in the presence of nurse. JANELLE
--- NOTE | 2022-02-08 14:06 | RS.BEDDYS ---
Subjective Date of Evaluation: 02/08/22 Diagnosis: Dehydration; sinus drainage Current Level of Function: This is an 86 year old female whom was admitted for dehydration and sinus problems with UTI. The patient consumes a regular diet texture and thin liquids. The patient has a hx of dementia. The PERMACULTURE DESIGNER will evaluate pt at the bedside to determine risks for penetration/aspiration as well as assess for safer and least restrictive diet. Cognitive screening will be completed. Current Diet: Regular diet; thin liquids; meds whole with sips of water. Current Subjective/complaints:: The patient was partially reclined in bed upon PERMACULTURE DESIGNER entry. The patient discussed her concerns with frequent sinus drainage that is difficult to clear or cough. No productive coughs were observed during evaluation. The patient reported she does not drink a lot of water through the day, but consumes a lot of 2% milk. At this time, she has minimal concerns for swallow function, but is concerned with her excess mucous production and drainage into her throat. Medical History Comments:: Hypothyroidism. Hyperlipidemia. Dementia General Information - General Denture Type: Full- Upper (Requires denture paste ), Partial- Lower (Does not wear lower partial- no partial at time of evaluation) Patient Orientation: Person, Place, Time (utilized white board to recall day and date.) Ability to Follow Directions: Fair (JAMUL and required alot of verbal repetition and rephrasing to understand PERMACULTURE DESIGNER) Oral Expression Ability: No Impairment - Voice Voice Pitch: Mildly High (hmming in between all verbalizations) Oral-Facial Assessment - Face Facial Symmetry: Symmetrical Facial Movement: Controlled - Dental/Labial Mouth Occlusion: Normal Lip Protrusion: Normal Lip Retraction: Normal Puff Cheeks: Reduced Strength - Lingual Protrusion: Weak (slow) Retraction: Weak Tip Lateralization: Reduced ROM (Mild difficulty with approximation) Tip Elevation: Weak Comments: General lingual weakness with all oral motor movements Food Presentation - Solids Food Presented: Regular (Finger food) Behaviors/Comments: Pt fed self independently. Appropriate size bites were observed. Pt presented bites to front of mouth. Anterior chew process observed secondary to utilization of front incisors for mastication process. Mild difficulty with bolus formation and coordination. Labial spillage with food textures observed 25% of meal. Oral stasis post swallows. No overt s/s of aspiration Food Presented: Mechanical Soft (1/2 tsp bites) Behaviors/Comments: Minimal to no deficits observed with mastication process. Pt tolerated all bites without overt s/s of aspiration. Minimal oral stasis throughout oral cavity with all bites. Food Presented: Pureed (1/2-3/4 tsp size bites) Behaviors/Comments: No deficits. Pt tolerated all bites independently. - Liquids Liquid Presented: Thin (via straw) Behaviors/Comments: Pt took small consecutive sips of thin liquids. No cough response. Clear voicing post trial. Pt did not report sinus drainage with water intake. PERMACULTURE DESIGNER encouraged sips of liquids with PO intake as pt did not utilize strategy to alternate liquids/solids. - Recommendations: Dysphagia Evaluation Dietary Recommendations: Soft and Bite-Sized, Thin Comments:: PERMACULTURE DESIGNER recommends diet downgrade to soft and bite-sized due to deficits with oral phase. Dysphagia Swallow Precautions/Strategies: Sitting Upright (90 deg), Small Bites and Sips, Alternate Liquids/Solids Comments:: Utilize all safe swallow and aspiration precautions 100% of PO intake. Oral care routine post PO intake and prior to laying head flat. - Summary Dysphagia Evaluation Summary: The patient presented with mild oral phase deficits and minimal pharyngeal phase deficits. Oral phase deficits were characterized by decreased mastication process and lingual strength and coordination. Pharyngeal phase deficits included mildly decreased LE for airway protection. With regular, soft, and puree diet textures no overt s/s of aspiration was observed. Thin liquids were consumed with clear voicing and no overt s/s of aspiration. At this time, PERMACULTURE DESIGNER recommends diet soft and bite-sized with thin liquids. Meds whole with sips of water. Further Therapy Indicated?: Yes Functional Reporting G Codes: n/a Severity Impairment Rationale: n/a Short Term Goals Goal #1: Pt tolerate soft and bite-sized diet w/ thin liquids w/o overt s/s of asp. Goal to be met by: 02/12/22 Goal #2: Pt utilize safe swallow/aspiration precautions 100% of PO intake. Goal to be met by: 02/12/22 Goal #3: Pt complete OMEs to improve labial/lingual strength/coordination Problem: Confusion Goal #4: Complete cognitive tasks with 80% accuracy Goal to be met by: 02/12/22 Fpc Goals Problem: swallow Goal #1: Tolerate safer and least restrictive diet with min to no overt s/s of asp Goal to be met by: 02/12/22 Problem: cognition Goal #2: Pt demo/verbalize safety awareness for return to home environment Plan Duration of Treatment: 1 Week Frequency of Treatment: 3x/week Anticipated Discharge Destination: Home Comments: Cognition was assessed with SLUMS examination. The pt is JAMUL and had in bilateral ENGLISH for assessment; however is concerned her battery is . Pt scored 22/30 which indicates a mild cognitive impairment. Pt demonstrated orientation to place and time with use of environmental cues. Immediate and delayed memory was moderately impaired with recall of 3/5 target words with use of verbal repetition/rehearsal. Pt named 7 members in a given category in 60 seconds. Pt demonstrated functional simple addition and subtraction and mental flexibility with number reversal. Pt demonstrated functional clock drawing and orientation to time setting. Following directions was functional. Auditory comprehension was moderately difficult demonstrating 50% accuracy with recall of details from paragraph length material. In the home environment, pt reported she relies on her son to assist with meals, groceries, mail, medication and account financial manager. Her son also checks-in and monitors her daily. She could recall her son's phone number from memory. - Treatment Code (1) Oropharyngeal dysphagia Code(s): R13.12 - Dysphagia, oropharyngeal phase (2) Dementia Code(s): F03.90 - Unspecified dementia without behavioral disturbance
[2022-02-08] MEDS ORDERED: XANAX PO PRN (20:00)
[2022-02-08] MEDS: PRAVACHOL PO SCH (20:28)
[2022-02-09 05:36] LABS: BASOPHILS % (AUTO) 0.1 % (0.0-3.0); HEMATOCRIT 39.3 % (37.0-47.0); HEMOGLOBIN 12.8 g/dl (12.0-16.0); IMMATURE GRANULOCYTE # (AUTO) 0.1 (0.0-1.0); IMMATURE GRANULOCYTE % (AUTO) 0.4 % (0.0-5.0); MEAN CORPUSCULAR HEMOGLOBIN 31.1 pg (27.0-31.0); MEAN CORPUSCULAR HGB CONC 32.6 (31.8-35.4); MEAN CORPUSCULAR VOLUME 95.4 fl (81.0-99.0); MONOCYTES # (AUTO) 0.9 K/uL (0.4-2.0); NEUTROPHILS # (AUTO) 11.5 K/ul (2.0-6.9); NEUTROPHILS % (AUTO) 79.5 % (42.2-75.2); PLATELET COUNT 339 10^3/uL (140-440); RED BLOOD COUNT 4.12 10^6/ul (4.20-5.40); WHITE BLOOD COUNT 14.44 K/ul (4.6-10.2)
[2022-02-09 05:46] LABS: ALANINE AMINOTRANSFERASE 24.5 U/L (0-35); ALBUMIN 3.84 g/dL (3.5-5.0); ALKALINE PHOSPHATASE 54.8 U/L (53-141); ASPARTATE AMINO TRANSFERASE 27.2 U/L (14-36); BILIRUBIN,TOTAL 0.32 mg/dL (0.2-1.3); BLOOD UREA NITROGEN 20.9 mg/dL (7-17); CALCIUM 8.85 mg/dL (8.4-10.2); CARBON DIOXIDE 23.9 mmol/L (22-30.0); CHLORIDE 107.6 mmol/L (98-107); CREATININE 0.61 mg/dL (0.60-1.30); POTASSIUM 4.24 mmol/L (3.5-5.1); TOTAL PROTEIN 6.82 g/dL (6.3-8.2)
[2022-02-09] MEDS: SYNTHROID PO SCH (05:52)
--- NOTE | 2022-02-09 08:50 | PCM.PROG ---
Attending Provider: ATTENDING PROVIDER: Dr. ALYSSA GONZALEZ This patient is seen with Char Linder, Nurse Practitioner. DATE OF SERVICE: 02/09/22 SUBJECTIVE: This 86 year old /WHITE F was hospitalized 02/06/22. The patient is pleasantly confused. Has been eating well. Afebrile. REVIEW OF SYSTEMS: CONSTITUTIONAL: No night sweats. No fatigue, malaise, lethargy. No fever or chills. Weakness. HEENT: Eyes: No visual changes. No eye pain. No eye discharge. ENT: No runny no se. No epistaxis. No sinus pain. No odynophagia. No congestion. RESPIRATORY: No cough, no congestion. No hemoptysis. No shortness of breath. CARDIOVASCULAR: No angina symptoms. No CHF symptoms. No atypical chest pain for CAD. No palpitations. No orthopnea.. GASTROINTESTINAL: No abdominal pain. No nausea or vomiting. No diarrhea or constipation. No hematemesis. No hematochezia. GENITOURINARY: No urgency. No frequency. No dysuria. No hematuria. No obstructive symptoms. No discharge. No pain. No significant abnormal bleeding. MUSCULOSKELETAL: No musculoskeletal pain; no joint swelling. NEUROLOGICAL: Awake, alert, confused. No headache. No neck pain. No syncope. No seizures. No dizziness. PSYCHIATRIC: Not anxious. No depression. No suicidal thoughts. No homicidal thoughts. SKIN: No rash. No lesions. No wounds. ENDOCRINE: No unexplained weight loss. No weight gain. HEMATOLOGIC/LYMPHATIC: No anemia. No purpura. No petechiae. No prolonged or excessive bleeding. No palpable lymph nodes. PHYSICAL EXAMINATION: GENERAL: The patient is awake, alert and oriented to person and place, lying in bed in no distress. VITAL SIGNS: Temperature 97.6 F, Pulse 75, Respiratory Rate 18, BP 143/82, Pulse Ox 99% HEENT: Head normocephalic, atraumatic. Eyes: Extraocular muscles are intact. Pupils are equal, round and reactive to light and accommodation. Ears: No lesions. Nose appeared normal. Throat: No exudate or erythema. NECK: Supple. No JVD, no carotid bruit. No lymphadenopathy or thyromegaly. LUNGS: Diminished breath sounds. Clear to auscultation. Percussion note normal. Chest symmetrical. HEART: S1, S2, no S3. No murmurs. No cyanosis or clubbing. No ascites. Pulses: Dorsalis pedis and posterior tibial pulses +1 to +2 both sides. ABDOMEN: Soft. Non-tender. Bowel sounds active. No CVA tenderness. No mass felt. EXTREMITIES: No edema. Full range of motion of all extremities, equal. NEUROLOGIC: No focal deficit. Cranial nerves II through XII are grossly intact. No headache. No double vision. SKIN: Not dry. Intact. Turgor-normal. LYMPHATIC: No palpable lymph nodes/no lymphedema. MUSCULOSKELETAL: Normal joints with no swelling. Muscle tone is normal. LAB REVIEW: 02/09/22 04:55 02/09/22 04:55 02/09/22 04:55: Sodium 138.0, Potassium 4.24, Chloride 107.6 H, Carbon Dioxide 23.9, Anion Gap 10.74, BUN 20.9 H, Creatinine 0.61, Estimated GFR (MDRD) 93.00, BUN/Creatinine Ratio 34.26, Glucose 127.0 H, Calcium 8.85, Total Bilirubin 0.32, AST 27.2, ALT 24.5, Alkaline Phosphatase 54.8, Total Protein 6.82, Albumin 3.84, Globulin 2.98, Albumin/Globulin Ratio 1.28 02/09/22 04:55: WBC 14.44 H, RBC 4.12 L, Hgb 12.8, Hct 39.3, MCV 95.4, MCH 31.1 H, MCHC 32.6, RDW Coeff of Mariah 13.0, Plt Count 339, Immature Gran % (Auto) 0.4, Neut % (Auto) 79.5 H, Lymph % (Auto) 14.0, [place] % (Auto) 6.0, Eos % (Auto) 0.0, Baso % (Auto) 0.1, Neut # (Auto) 11.5 H, Lymph # (Auto) 2.0, [place] # (Auto) 0.9, Eos # (Auto) 0.0, Baso # (Auto) 0.0, Immature Gran # (Auto) 0.1 02/08/22 09:40: Adenovirus (PCR) Not detected, B. pertussis DNA (PCR) Not detected, B.parapertussis DNA PCR Not detected, C. pneumoniae DNA (PCR) Not dete cted, Coronavirus OC43 (PCR) Not detected, Coronavirus HKU1 (PCR) Not detected, Coronavirus 229E (PCR) Not detected, Coronavirus NL63 (PCR) Not detected, Human Metapneumovir PCR Not detected, Influenza Type A (PCR) Not detected, Influenza B (RT-PCR) Not detected, M. pneumoniae (PCR) Not detected, Parainfluenza 1 (PCR) Not detected, Parainfluenza 2 (PCR) Not detected, Parainfluenza 3 (PCR) Not dete cted, Parainfluenza 4 (PCR) Not detected, RSV (PCR) Not detected, Entero/Rhino (PCR) Not detected, SARS-CoV-2 (PCR) Not detected 02/08/22 05:00: TSH 5.550 H 02/08/22 05:00: Free T4 1.11 ASSESSMENT: Please see below. 1. UTI, positive e-coli 2. Acute sinusitis 3. Dementia PLAN: 1. Continue IV antibiotics 2. Will discuss with son plans for discharge 3. Consult Case Management Plan and coordination of the patient's care discussed in the presence of Sap Basis and nurse. SCRIBED BY: Silva SCHMIDTist scribed while in presence of service performed by Dr. Gonzalez/Char Linder APRN on 02/09/22 (0800)
[2022-02-09] MEDS: FLONASE NAS SCH (09:29)
[2022-02-09] MEDS: ROCEPHIN 1 GM/50 ML D5W 1 GM/50 ML BAG IV SCH (09:29)
[2022-02-09] MEDS: MUCINEX PO SCH (09:29)
[2022-02-09] MEDS: ARIMIDEX PO SCH (09:29)
[2022-02-09] MEDS: PREDNISONE PO SCH (09:29)
[2022-02-09 14:23] VITALS: BP 120/70; TEMP 97.7
--- NOTE | 2022-02-11 11:21 | PN ---
DATE OF SERVICE: 02/08/22 SUBJECTIVE: The patient was seen and examined with Nurse Practitioner. The patient's condition is doing better. She is alert and afebrile. Cardiovascular status is stable. Sinusitis is under control. UTI is under control. TIME SPENT: More than 30 minutes. Plan and coordination of the patient's care discussed in the presence of nurse. JANELLE
--- NOTE | 2022-02-11 13:19 | PN ---
DATE OF SERVICE: 02/09/22 SUBJECTIVE: The patient was seen and examined with the Nurse Practitioner. The patient's condition is stable. UTI symptoms and sinusitis are resolved. The patient's son wants her to go home. The patient has dementia, seems to be somewhat functional but confused. I don't think she is reliable to live by herself. The son thinks otherwise. He was clearly instructed to have 24 hour care for her for a while at least for 3 weeks after discharge and maybe longer. She is going to be seen in the office in 5-7 days. TIME SPENT: More than 30 minutes. Plan and coordination of the patient's care discussed in the presence of nurse. JANELLE
--- NOTE | 2022-02-11 13:20 | PN ---
02/06/22: Level 5 02/07/22: Intermediate 02/08/22: Intermediate 02/09/22: D as in discharge MTDD
--- NOTE | 2022-02-17 14:24 | DS ---
DATE OF SERVICE: 02/09/22 FINAL DIAGNOSIS: 1. UTI, Positive e-coli 2. Acute sinusitis 3. Dementia 4. Renal azotemia DISCHARGE INSTRUCTIONS: Discharge home today. Continue medications as listed per nursing reconciliation. Followup with primary care physician in 5-7 days after discharge. Anna Gomez has been contacted and will be reaching out. MEDICATIONS AT DISCHARGE: Arimidex 1mg PO daily Pravachol 40mg PO bedtime Synthroid 50mcg PO QDAC NEW PRESCRIPTIONS: Fluticasone propionate 50mcg two spray intranasal BID Cefdinir 300mg PO BID for 7 days Mucinex 600mg PO Q 12 hours for 14 days. DIET INSTRUCTIONS: Continue soft bite sized diet ACTIVITY: Gradually resume activity as tolerated HOSPITAL COURSE: 86 year old female who presented to the emergency room complaining of shortness of breath, not feeling well. Chest x-ray showed no acute process. Mild cardiac enlargement. The patient was complaining of cough, congestion, nose burning and sinus drainage. COVID test was negative. U/A was abnormal. Culture showed e- coli. She was placed on Rocephin 1 gram IV daily for which this was sensitive. Initially renal function was slightly elevated. She was given IV fluids 1 liter of normal saline. She was started on the Rocephin. She was given 1cc of Decadron and started on Flonase and Quaifenesin. Over the course of the next several days confusion improved and appetite improved. She never ran any fever. She will be discharged in stable condition. She is going back home. Initially she reduced any Home Health. She is agreeable to PT/OT. She is still living by herself at home, her son lives right next door. She will go home on Omnicef 300mg BID for the next 7 days. She will followup with us in the office next week. TIME SPENT: More than 60 minutes. JANELLE
== END 2022-02-09 15:45 | disposition home health service (06) | DRG 690 ==
LOC: ED 06:01 → MEDSURG A 11:12
PROVIDERS: ADMIT Internal Medicine; ATTEND Internal Medicine

== ENCOUNTER 2022-07-01 17:30 | Inpatient (IN) ==
--- NOTE | 2022-07-01 18:02 | ED.PDOC ---
General <RICHARD YIN MD - Last Filed: 07/01/22 18:02> ED Provider: Dr. RICHARD YIN MD Chief Complaint: Weakness Stated Complaint: mild to mod general weakness for one week w/ 5lb weight loss, and increasing confusion, no injury, no NV, no fever, no hx htn or dm, hx cataract surgery, poor historian Time Seen by Provider: 07/01/22 17:33 Mode of Arrival: Wheelchair Information Source: Patient Primary Care Provider: ALYSSA ALLISON Sepsis Protocol: For patient's 13 years and over: Temp is 96.8 and below OR 101 and greater Pulse >90 BPM Resp >20/minute Acutely Altered Mental Status Are patient's symptoms suggestive of a new infection, such as: -Pneumonia -Skin, Soft Tissue -Endocarditis -UTI -Bone, Joint Infection -Implantable Device -Acute Abdominal Infection -Wound Infection -Meningitis -Blood Stream Catheter Infection -Unknown <JAZMÍN YOUNGBLOOD MD - Last Filed: 07/01/22 21:47> Nursing and Triage Documentation Reviewed and Agree: Yes Does patient meet sepsis criteria?: No System Inflammatory Response Syndrome: Not Applicable Review of Systems <RICHARD YIN MD - Last Filed: 07/01/22 18:02> Review Of Systems Constitutional: Reports Malaise and Weakness; Denies Fever Eyes: Denies Vision change Ears, Nose, Mouth, Throat: Denies Throat pain Respiratory: Denies Short of air Cardiac: Denies Chest pain GI: Denies Abdominal pain or Vomiting : Denies Frequency Musculoskeletal: Denies Neck pain Skin: Denies Rash Neurological: Reports Cognitive dysfunction All Other Systems: Other PFSH <RICHARD YIN MD - Last Filed: 07/01/22 18:02> Medical History Chronic sinusitis Dementia Dyslipidemia Hypothyroidism Family History FATHER Myocardial infarct Social History Alcohol intake: never Surgical History History of hysterectomy for cancer Female Reproductive History Menstrual Hx Hysterectomy: Yes Hx Tubal Ligation: No Physical Exam <RICHARD YIN MD - Last Filed: 07/01/22 18:02> Physical Exam Appearance: Reports No pain distress Ill-appearing: None Pain Distress: None Eyes: Reports JOSE MARTIN, EOMI and Conjunctiva clear ENT: Reports Oropharynx normal; Denies Rhinorrhea Neck: Supple Respiratory: Reports Airway patent, Breath sounds clear and Breath sounds equal Cardiovascular: Reports Tachycardia GI/: Reports Soft and Nontender Musculoskeletal: Reports No edema Skin: Reports Warm and Dry Neurological: Reports Alert; Denies Oriented Psychiatric: Reports Depressed <JAZMÍN YOUNGBLOOD MD - Last Filed: 07/01/22 21:47> Case Discussed Physician Notified: Dr Allison Time of Notification: 21:20 (ok to admit on telemetery and IV Rocephin) <JAZMÍN YOUNGBLOOD MD - Last Filed: 07/01/22 21:47> Critical Care Note Total Critical Care Time (mins): 0 Course <RICHARD YIN MD - Last Filed: 07/01/22 18:02> Course Hematology/Chemistry: 07/01/22 18:06 07/01/22 18:06 Orders, Labs, Meds: Lab Review 07/01/22 07/01/22 07/01/22 18:06 18:06 18:06 WBC 11.52 H RBC 4.17 L Hgb 12.8 Hct 39.1 MCV 93.8 MCH 30.7 MCHC 32.7 RDW Coeff of Mariah 13.1 Plt Count 312 Immature Gran % (Auto) 0.3 Neut % (Auto) 84.0 H Lymph % (Auto) 9.0 L [place] % (Auto) 6.3 Eos % (Auto) 0.1 Baso % (Auto) 0.3 Neut # (Auto) 9.7 H Lymph # (Auto) 1.0 [place] # (Auto) 0.7 Eos # (Auto) 0.0 Baso # (Auto) 0.0 Immature Gran # (Auto) 0.0 PT 10.4 INR 1.00 Puncture Site Base Excess O2 Saturation ABG pH ABG pCO2 ABG pO2 ABG HCO3 ABG Total CO2 Jorge Test Hemoglobin Oxyhemoglobin Carboxyhemoglobin Total Hemoglobin FiO2 % Sodium 134.3 L Potassium 3.93 Chloride 104.2 Carbon Dioxide 21.6 L Anion Gap 12.43 BUN 22.3 H Creatinine 0.84 Estimated GFR (MDRD) 64.00 BUN/Creatinine Ratio 26.54 Glucose 159.8 H Lactic Acid Calcium 9.21 Total Bilirubin 0.43 AST 31.0 ALT 25.2 Alkaline Phosphatase 73.2 Troponin I < 0.012 Total Protein 7.17 Albumin 3.95 Globulin 3.22 Albumin/Globulin Ratio 1.22 Urine Color Urine Clarity Urine pH Ur Specific [place] Urine Protein Urine Glucose (UA) Urine Ketones Urine Blood Urine Nitrite Urine Bilirubin Urine Urobilinogen Ur Leukocyte Esterase Urine Microscopic RBC Urine Microscopic WBC Ur Squamous Epith Cells SARS CoV-2 RNA Rapid PATRICK 07/01/22 07/01/22 07/01/22 18:06 18:25 19:15 WBC RBC Hgb Hct MCV MCH MCHC RDW Coeff of Mariah Plt Count Immature Gran % (Auto) Neut % (Auto) Lymph % (Auto) [place] % (Auto) Eos % (Auto) Baso % (Auto) Neut # (Auto) Lymph # (Auto) [place] # (Auto) Eos # (Auto) Baso # (Auto) Immature Gran # (Auto) PT INR Puncture Site Rb Base Excess -0.4 O2 Saturation 97.0 ABG pH 7.48 H ABG pCO2 31.0 L ABG pO2 84.0 L ABG HCO3 23.1 ABG Total CO2 24.1 H Jorge Test Pos Hemoglobin 1.6 H Oxyhemoglobin 94.7 L Carboxyhemoglobin 2.1 H Total Hemoglobin 12.9 FiO2 % 21.0 Sodium Potassium Chloride Carbon Dioxide Anion Gap BUN Creatinine Estimated GFR (MDRD) BUN/Creatinine Ratio Glucose Lactic Acid 1.95 Calcium Total Bilirubin AST ALT Alkaline Phosphatase Troponin I Total Protein Albumin Globulin Albumin/Globulin Ratio Urine Color Urine Clarity Urine pH Ur Specific [place] Urine Protein Urine Glucose (UA) Urine Ketones Urine Blood Urine Nitrite Urine Bilirubin Urine Urobilinogen Ur Leukocyte Esterase Urine Microscopic RBC Urine Microscopic WBC Ur Squamous Epith Cells SARS CoV-2 RNA Rapid PATRICK Negative 07/01/22 19:25 WBC RBC Hgb Hct MCV MCH MCHC RDW Coeff of Mariah Plt Count Immature Gran % (Auto) Neut % (Auto) Lymph % (Auto) [place] % (Auto) Eos % (Auto) Baso % (Auto) Neut # (Auto) Lymph # (Auto) [place] # (Auto) Eos # (Auto) Baso # (Auto) Immature Gran # (Auto) PT INR Puncture Site Base Excess O2 Saturation ABG pH ABG pCO2 ABG pO2 ABG HCO3 ABG Total CO2 Jorge Test Hemoglobin Oxyhemoglobin Carboxyhemoglobin Total Hemoglobin FiO2 % Sodium Potassium Chloride Carbon Dioxide Anion Gap BUN Creatinine Estimated GFR (MDRD) BUN/Creatinine Ratio Glucose Lactic Acid Calcium Total Bilirubin AST ALT Alkaline Phosphatase Troponin I Total Protein Albumin Globulin Albumin/Globulin Ratio Urine Color Yellow Urine Clarity Clear Urine pH 5.5 Ur Specific [place] 1.015 Urine Protein Negative Urine Glucose (UA) Negative Urine Ketones Negative Urine Blood Trace-lysed Urine Nitrite Negative Urine Bilirubin Negative Urine Urobilinogen 0.2 Ur Leukocyte Esterase 1+ H Urine Microscopic RBC 2-5 Urine Microscopic WBC 5-10 Ur Squamous Epith Cells 2-5 SARS CoV-2 RNA Rapid PATRICK Orders Category Date Time Status ADMIT PATIENT INPATIENT .TO [facility] (MONITORED BED) ADMISSION 07/01/22 21:32 Ordered ABG DRAW REQUEST Stat CARDIO 07/01/22 17:58 Completed EKG-(ED ONLY) Stat CARDIO 07/01/22 17:58 Completed INTAKE & OUTPUT Q8HR CARE 07/01/22 21:32 Ordered TELEMETRY MONITORING TELE CARE 07/01/22 21:34 Ordered ABG COOX Stat LAB 07/01/22 18:25 Completed CBC W/ AUTO DIFF Stat LAB 07/01/22 18:06 Completed CMP [COMPREHENSIVE METABOLIC PANEL] Stat LAB 07/01/22 18:06 Completed LACTIC ACID Stat LAB 07/01/22 18:06 Completed PT WITH INR Stat LAB 07/01/22 18:06 Completed SARS COV-2 RNA RAPID PATRICK Stat LAB 07/01/22 19:15 Completed TROPONIN I Stat LAB 07/01/22 18:06 Completed URINALYSIS C & S IF INDICATED Stat LAB 07/01/22 19:25 Completed URINE CULTURE Stat LAB 07/01/22 19:25 Received Anastrozole [Arimidex] MEDS 07/02/22 09:00 Active 1 mg PO DAILY Ceftriaxone/D5w 1 gm Premix [Rocephin 1 gm/50 ml D5w] MEDS 07/01/22 20:34 Discontinued 1 gm in 50 ml IV ONCE Guaifenesin [Mucinex] MEDS 07/02/22 09:00 Active 1,200 mg PO BID Levothyroxine Sodium [Synthroid] MEDS 07/02/22 06:30 Active 50 mcg PO QDAC Loratadine [Claritin] MEDS 07/01/22 22:00 Active 10 mg PO BEDTIME Pravastatin Sodium [Pravachol] MEDS 07/02/22 21:00 Active 40 mg PO BEDTIME RESUSCITATION STATUS Routine OTHERS 07/01/22 21:32 Ordered CHEST, 1V AP ONLY Stat RADS 07/01/22 17:[address] HEAD W/O CONTRAST Stat RADS 07/01/22 17:58 Completed Medications Generic Name Dose Route Start Last Admin Trade Name Freq PRN Reason Stop Dose Admin Anastrozole 1 mg 07/02/22 09:00 Anastrozole 1 Mg Tablet PO DAILY VALERIE Guaifenesin 1,200 mg 07/02/22 09:00 Guaifenesin 600 Mg Tablet.Er PO BID VALERIE Levothyroxine Sodium 50 mcg 07/02/22 06:30 Levothyroxine Sodium 50 Mcg Tablet PO QDAC VALERIE Loratadine 10 mg 07/01/22 22:00 Loratadine 10 Mg Tablet PO BEDTIME VALERIE Pravastatin Sodium 40 mg 07/02/22 21:00 Pravastatin Sodium 40 Mg Tablet PO BEDTIME VALERIE Discontinued Medications Generic Name Dose Route Start Last Admin Trade Name Freq PRN Reason Stop Dose Admin CEFTRIAXONE/D5W 1 GM PREMIX 1 gm in 50 mls @ 75 mls/hr 07/01/22 20:34 07/01/22 21:02 Rocephin 1 Gm/50 Ml D5w IV 07/01/22 21:13 75 mls/hr ONCE STA Administration Vital Signs: Temp Pulse Resp BP Pulse Ox 07/01/22 17:30 98.9 F 119 H 20 154/82 H 96 <JAZMÍN YOUNGBLOOD MD - Last Filed: 07/01/22 21:47> Course Orders, Labs, Meds: Lab Review 07/01/22 07/01/22 07/01/22 18:06 18:06 18:06 WBC 11.52 H RBC 4.17 L Hgb 12.8 Hct 39.1 MCV 93.8 MCH 30.7 MCHC 32.7 RDW Coeff of Mariah 13.1 Plt Count 312 Immature Gran % (Auto) 0.3 Neut % (Auto) 84.0 H Lymph % (Auto) 9.0 L [place] % (Auto) 6.3 Eos % (Auto) 0.1 Baso % (Auto) 0.3 Neut # (Auto) 9.7 H Lymph # (Auto) 1.0 [place] # (Auto) 0.7 Eos # (Auto) 0.0 Baso # (Auto) 0.0 Immature Gran # (Auto) 0.0 PT 10.4 INR 1.00 Puncture Site Base Excess O2 Saturation ABG pH ABG pCO2 ABG pO2 ABG HCO3 ABG Total CO2 Jorge Test Hemoglobin Oxyhemoglobin Carboxyhemoglobin Total Hemoglobin FiO2 % Sodium 134.3 L Potassium 3.93 Chloride 104.2 Carbon Dioxide 21.6 L Anion Gap 12.43 BUN 22.3 H Creatinine 0.84 Estimated GFR (MDRD) 64.00 BUN/Creatinine Ratio 26.54 Glucose 159.8 H Lactic Acid Calcium 9.21 Total Bilirubin 0.43 AST 31.0 ALT 25.2 Alkaline Phosphatase 73.2 Troponin I < 0.012 Total Protein 7.17 Albumin 3.95 Globulin 3.22 Albumin/Globulin Ratio 1.22 Urine Color Urine Clarity Urine pH Ur Specific [place] Urine Protein Urine Glucose (UA) Urine Ketones Urine Blood Urine Nitrite Urine Bilirubin Urine Urobilinogen Ur Leukocyte Esterase Urine Microscopic RBC Urine Microscopic WBC Ur Squamous Epith Cells SARS CoV-2 RNA Rapid PATRICK 07/01/22 07/01/22 07/01/22 18:06 18:25 19:15 WBC RBC Hgb Hct MCV MCH MCHC RDW Coeff of Mariah Plt Count Immature Gran % (Auto) Neut % (Auto) Lymph % (Auto) [place] % (Auto) Eos % (Auto) Baso % (Auto) Neut # (Auto) Lymph # (Auto) [place] # (Auto) Eos # (Auto) Baso # (Auto) Immature Gran # (Auto) PT INR Puncture Site Rb Base Excess -0.4 O2 Saturation 97.0 ABG pH 7.48 H ABG pCO2 31.0 L ABG pO2 84.0 L ABG HCO3 23.1 ABG Total CO2 24.1 H Jorge Test Pos Hemoglobin 1.6 H Oxyhemoglobin 94.7 L Carboxyhemoglobin 2.1 H Total Hemoglobin 12.9 FiO2 % 21.0 Sodium Potassium Chloride Carbon Dioxide Anion Gap BUN Creatinine Estimated GFR (MDRD) BUN/Creatinine Ratio Glucose Lactic Acid 1.95 Calcium Total Bilirubin AST ALT Alkaline Phosphatase Troponin I Total Protein Albumin Globulin Albumin/Globulin Ratio Urine Color Urine Clarity Urine pH Ur Specific [place] Urine Protein Urine Glucose (UA) Urine Ketones Urine Blood Urine Nitrite Urine Bilirubin Urine Urobilinogen Ur Leukocyte Esterase Urine Microscopic RBC Urine Microscopic WBC Ur Squamous Epith Cells SARS CoV-2 RNA Rapid PATRICK Negative 07/01/22 19:25 WBC RBC Hgb Hct MCV MCH MCHC RDW Coeff of Mariah Plt Count Immature Gran % (Auto) Neut % (Auto) Lymph % (Auto) [place] % (Auto) Eos % (Auto) Baso % (Auto) Neut # (Auto) Lymph # (Auto) [place] # (Auto) Eos # (Auto) Baso # (Auto) Immature Gran # (Auto) PT INR Puncture Site Base Excess O2 Saturation ABG pH ABG pCO2 ABG pO2 ABG HCO3 ABG Total CO2 Jorge Test Hemoglobin Oxyhemoglobin Carboxyhemoglobin Total Hemoglobin FiO2 % Sodium Potassium Chloride Carbon Dioxide Anion Gap BUN Creatinine Estimated GFR (MDRD) BUN/Creatinine Ratio Glucose Lactic Acid Calcium Total Bilirubin AST ALT Alkaline Phosphatase Troponin I Total Protein Albumin Globulin Albumin/Globulin Ratio Urine Color Yellow Urine Clarity Clear Urine pH 5.5 Ur Specific [place] 1.015 Urine Protein Negative Urine Glucose (UA) Negative Urine Ketones Negative Urine Blood Trace-lysed Urine Nitrite Negative Urine Bilirubin Negative Urine Urobilinogen 0.2 Ur Leukocyte Esterase 1+ H Urine Microscopic RBC 2-5 Urine Microscopic WBC 5-10 Ur Squamous Epith Cells 2-5 SARS CoV-2 RNA Rapid PATRICK Orders Category Date Time Status ADMIT PATIENT INPATIENT .TO [facility] (MONITORED BED) ADMISSION 07/01/22 21:32 Ordered ABG DRAW REQUEST Stat CARDIO 07/01/22 17:58 Completed EKG-(ED ONLY) Stat CARDIO 07/01/22 17:58 Completed INTAKE & OUTPUT Q8HR CARE 07/01/22 21:32 Ordered TELEMETRY MONITORING TELE CARE 07/01/22 21:34 Ordered ABG COOX Stat LAB 07/01/22 18:25 Completed CBC W/ AUTO DIFF Stat LAB 07/01/22 18:06 Completed CMP [COMPREHENSIVE METABOLIC PANEL] Stat LAB 07/01/22 18:06 Completed LACTIC ACID Stat LAB 07/01/22 18:06 Completed PT WITH INR Stat LAB 07/01/22 18:06 Completed SARS COV-2 RNA RAPID PATRICK Stat LAB 07/01/22 19:15 Completed TROPONIN I Stat LAB 07/01/22 18:06 Completed URINALYSIS C & S IF INDICATED Stat LAB 07/01/22 19:25 Completed URINE CULTURE Stat LAB 07/01/22 19:25 Received Anastrozole [Arimidex] MEDS 07/02/22 09:00 Active 1 mg PO DAILY Ceftriaxone/D5w 1 gm Premix [Rocephin 1 gm/50 ml D5w] MEDS 07/01/22 20:34 Discontinued 1 gm in 50 ml IV ONCE Guaifenesin [Mucinex] MEDS 07/02/22 09:00 Active 1,200 mg PO BID Levothyroxine Sodium [Synthroid] MEDS 07/02/22 06:30 Active 50 mcg PO QDAC Loratadine [Claritin] MEDS 07/01/22 22:00 Active 10 mg PO BEDTIME Pravastatin Sodium [Pravachol] MEDS 07/02/22 21:00 Active 40 mg PO BEDTIME RESUSCITATION STATUS Routine OTHERS 07/01/22 21:32 Ordered CHEST, 1V AP ONLY Stat RADS 07/01/22 17:[address] HEAD W/O CONTRAST Stat RADS 07/01/22 17:58 Completed Medications Generic Name Dose Route Start Last Admin Trade Name Freq PRN Reason Stop Dose Admin Anastrozole 1 mg 07/02/22 09:00 Anastrozole 1 Mg Tablet PO DAILY VALERIE Guaifenesin 1,200 mg 07/02/22 09:00 Guaifenesin 600 Mg Tablet.Er PO BID VALERIE Levothyroxine Sodium 50 mcg 07/02/22 06:30 Levothyroxine Sodium 50 Mcg Tablet PO QDAC VALERIE Loratadine 10 mg 07/01/22 22:00 Loratadine 10 Mg Tablet PO BEDTIME VALERIE Pravastatin Sodium 40 mg 07/02/22 21:00 Pravastatin Sodium 40 Mg Tablet PO BEDTIME VALERIE Discontinued Medications Generic Name Dose Route Start Last Admin Trade Name Freq PRN Reason Stop Dose Admin CEFTRIAXONE/D5W 1 GM PREMIX 1 gm in 50 mls @ 75 mls/hr 07/01/22 20:34 07/01/22 21:02 Rocephin 1 Gm/50 Ml D5w IV 07/01/22 21:13 75 mls/hr ONCE STA Administration Vital Signs: Temp Pulse Resp BP Pulse Ox 07/01/22 17:30 98.9 F 119 H 20 154/82 H 96 Discharge Plan Discharge Patient Disposition: ADMITTED INPATIENT Discharge Problem: UTI (urinary tract infection), Dementia, Muscle weakness Did you review [place] MUSIC EDUCATOR?: Not Applicable Discussed opioids are addictive and Narcan is available by prescription or from pharmacy.: No ED Provider: RICHARD YIN Condition: Fair <RICHARD YIN MD - Last Filed: 07/01/22 18:02> Physician Progress Note: care to Dr Youngblood at 19:00 []
[2022-07-01 18:15] LABS: BASOPHILS % (AUTO) 0.3 % (0.0-3.0); EOSINOPHILS % (AUTO) 0.1 % (0.0-7.0); HEMATOCRIT 39.1 % (37.0-47.0); HEMOGLOBIN 12.8 g/dl (12.0-16.0); IMMATURE GRANULOCYTE % (AUTO) 0.3 % (0.0-5.0); MEAN CORPUSCULAR HEMOGLOBIN 30.7 pg (27.0-31.0); MEAN CORPUSCULAR HGB CONC 32.7 (31.8-35.4); MEAN CORPUSCULAR VOLUME 93.8 fl (81.0-99.0); MONOCYTES # (AUTO) 0.7 K/uL (0.4-2.0); MONOCYTES % (AUTO) 6.3 (0-10); NEUTROPHILS # (AUTO) 9.7 K/ul (2.0-6.9); PLATELET COUNT 312 10^3/uL (140-440); RDW COEFFICIENT OF VARIATION 13.1 % (11.6-14.8); RED BLOOD COUNT 4.17 10^6/ul (4.20-5.40); WHITE BLOOD COUNT 11.52 K/ul (4.6-10.2)
[2022-07-01 18:28] LABS: ALANINE AMINOTRANSFERASE 25.2 U/L (0-35); ALBUMIN 3.95 g/dL (3.5-5.0); ALKALINE PHOSPHATASE 73.2 U/L (53-141); BILIRUBIN,TOTAL 0.43 mg/dL (0.2-1.3); BLOOD UREA NITROGEN 22.3 mg/dL (7-17); CALCIUM 9.21 mg/dL (8.4-10.2); CARBON DIOXIDE 21.6 mmol/L (22-30.0); CHLORIDE 104.2 mmol/L (98-107); CREATININE 0.84 mg/dL (0.60-1.30); GLUCOSE 159.8 mg/dL (74-106); POTASSIUM 3.93 mmol/L (3.5-5.1); PROTHROMBIN TIME 10.4 SEC (9.3-11.0); SODIUM 134.3 mmol/L (134.5-145); TOTAL PROTEIN 7.17 g/dL (6.3-8.2)
[2022-07-01 18:33] LABS: ABG O2 HGB 94.7 % (95-100); ABG PH 7.48 (7.35-7.45); BEecf -0.4 (-2.0-3.0); COHb 2.1 (0.5-1.5); HCO3 23.1 (21-28); MetHb 1.6 (0-1.5); TCO2 24.1 (19-24); tHb 12.9 g/dl (11.7-17.4)
[2022-07-01 18:40] LABS: TROPONIN I < 0.012 ng/ml (0.0000-0.120)
--- NOTE | 2022-07-01 19:12 | DI ---
EXAM: CHEST RADIOGRAPH (1 VIEW) TECHNIQUE: Frontal Chest Radiograph. HISTORY: Weakness COMPARISON: 02/06/2022 FINDINGS: Lines, Tubes, Devices: None Lungs and Pleura: No focal consolidation. No pleural effusion. No pneumothorax. No pulmonary lane a. Stable right upper lobe granuloma and additional scattered granulomas. Cardiomediastinum: Stable cardiomediastinal silhouette. Severe aortic calcifications. Bones/Soft Tissues: No acute osseous abnormality. No soft tissue abnormality. Upper Abdomen: Within normal limits. IMPRESSION: No acute radiographic abnormality.
--- NOTE | 2022-07-01 19:25 | CT ---
EXAMINATION: Head CT without contrast HISTORY: Altered mental status. Weakness. TECHNIQUE: Noncontrast CT of the brain was performed with images acquired from skull base to vertex. 2-D coronal and sagittal reformatted images were obtained from the axial source images. Contrast Dose: None. CT Dose Reduction Techniques Performed: Yes. COMPARISON: 05/17/2022. FINDINGS: Topogram demonstrates no significant abnormality. Intraparenchymal hemorrhage: None. Parenchyma: Normal linder-white differentiation. No mass effect or midline shift. Chronic: Decreased attenuation of the periventricular white matter consistent with microangiopathic i schemic change. Vascular calcifications consistent with arthrosclerosis. Extra-axial spaces and basal cisterns: Normal. Ventricles: Enlargement of the ventricles and subarachnoid spaces consistent with atrophy. Paranasal sinuses and mastoid air cells: Visualized portions of paranasal sinuses are clear. Mastoid air cells are clear. Orbits: Normal visualized portions. Sella/Skull Base: Normal. Other: Scalp and visualized soft tissues are normal. Calvarium is normal. IMPRESSION: 1. Atrophy. 2. Microangiopathic ischemic change. 3. Atherosclerosis. 4. No intracranial hemorrhage. 5. Otherwise unremarkable noncontrast CT scan of the brain. All CT scans are performed using dose optimization techniques as appropriate to the performed exam an d include at least one of the following: Automated exposure control, adjustment of the mA and/or kV according t o size, and the use of iterative reconstruction technique.
[2022-07-01 19:37] LABS: BILIRUBIN,URINE Negative (NEGATIVE); CLARITY,URINE Clear (CLEAR); COLOR,URINE Yellow (YELLOW); GLUCOSE, URINE (UA) Negative (NEGATIVE); KETONES,URINE Negative (NEGATIVE); LEUKOCYTE ESTERASE ,URINE 1+ (NEGATIVE); NITRITE,URINE Negative (NEGATIVE); PH,URINE 5.5 (5-9); PROTEIN,URINE Negative (NEGATIVE); URINE, BLOOD Trace-lysed (NEGATIVE); UROBILINOGEN,URINE 0.2 (0.2)
[2022-07-01] MEDS ORDERED: ROCEPHIN 1 GM/50 ML D5W 1 GM/50 ML BAG IV STA (20:34)
[2022-07-01] MEDS ORDERED: ZOFRAN 4 MG/2 ML IVP PRN (21:42)
[2022-07-01] MEDS ORDERED: TYLENOL PO PRN (21:42)
[2022-07-01 22:12] VITALS: BMI 20.5
[2022-07-01] MEDS: SODIUM CHLORIDE 1,000 ML IV SCH (22:19)
[2022-07-01] MEDS ORDERED: FLONASE NAS PRN (22:23)
[2022-07-01] MEDS ORDERED: XANAX PO ONE (22:24)
[2022-07-01] MEDS: CLARITIN PO SCH (22:35)
[2022-07-02] MEDS: SODIUM CHLORIDE 1,000 ML IV SCH ×3 (05:02→16:28)
[2022-07-02 05:10] LABS: BASOPHILS % (AUTO) 0.4 % (0.0-3.0); EOSINOPHILS # (AUTO) 0.1 K/ul (0.0-0.7); EOSINOPHILS % (AUTO) 0.9 % (0.0-7.0); HEMATOCRIT 38.2 % (37.0-47.0); HEMOGLOBIN 12.3 g/dl (12.0-16.0); IMMATURE GRANULOCYTE % (AUTO) 0.3 % (0.0-5.0); LYMPHOCYTES # (AUTO) 2.7 K/uL (0.60-3.4); MEAN CORPUSCULAR HEMOGLOBIN 30.7 pg (27.0-31.0); MEAN CORPUSCULAR HGB CONC 32.2 (31.8-35.4); MEAN CORPUSCULAR VOLUME 95.3 fl (81.0-99.0); MONOCYTES % (AUTO) 10.2 (0-10); NEUTROPHILS # (AUTO) 5.7 K/ul (2.0-6.9); NEUTROPHILS % (AUTO) 60.2 % (42.2-75.2); PLATELET COUNT 289 10^3/uL (140-440); RDW COEFFICIENT OF VARIATION 13.1 % (11.6-14.8); RED BLOOD COUNT 4.01 10^6/ul (4.20-5.40); WHITE BLOOD COUNT 9.48 K/ul (4.6-10.2)
[2022-07-02 05:23] LABS: BLOOD UREA NITROGEN 16.6 mg/dL (7-17); CALCIUM 8.68 mg/dL (8.4-10.2); CARBON DIOXIDE 23.8 mmol/L (22-30.0); CREATININE 0.68 mg/dL (0.60-1.30); GLUCOSE 101.2 mg/dL (74-106); POTASSIUM 4.02 mmol/L (3.5-5.1); SODIUM 138.1 mmol/L (134.5-145)
[2022-07-02] MEDS: SYNTHROID PO SCH (05:39)
--- NOTE | 2022-07-02 09:19 | PCM.PROG ---
Attending Provider: ATTENDING PROVIDER: Dr. ALYSSA GONZALEZ DATE OF SERVICE: 07/02/22 SUBJECTIVE: This 87 year old /WHITE F was hospitalized 07/01/22 with UTI. She was more confused at home and slightly dehydrated. Condition has improved. Skin turgor is a lot better. Not in any distress. Alert but confused. Neurological status is stable. REVIEW OF SYSTEMS: CONSTITUTIONAL: No night sweats. No fatigue, malaise, lethargy. No fever or chills. HEENT: Eyes: No visual changes. No eye pain. No eye discharge. ENT: No runny nose. No epistaxis. No sinus pain. No odynophagia. No congestion. RESPIRATORY: No cough, no congestion. No hemoptysis. No shortness of breath. CARDIOVASCULAR: No angina symptoms. No CHF symptoms. No atypical chest pain for CAD. No palpitations. No orthopnea.. GASTROINTESTINAL: No abdominal pain. No nausea or vomiting. No diarrhea or constipation. No hematemesis. No hematochezia. GENITOURINARY: No urgency. No frequency. No dysuria. No hematuria. No o bstructive symptoms. No discharge. No pain. No significant abnormal bleeding. MUSCULOSKELETAL: No musculoskeletal pain; no joint swelling. NEUROLOGICAL: Awake, alert, oriented to time, place and person. No headache. No neck pain. No syncope. No seizures. No dizziness. PSYCHIATRIC: Not anxious. No depression. No suicidal thoughts. No homicidal thoughts. SKIN: No rash. No lesions. No wounds. ENDOCRINE: No unexplained weight loss. No weight gain. HEMATOLOGIC/LYMPHATIC: No anemia. No purpura. No petechiae. No prolonged or excessive bleeding. No palpable lymph nodes. PHYSICAL EXAMINATION: GENERAL: The patient is awake, alert and oriented, sitting in bed in no distres s. VITAL SIGNS: Temperature 97.9 F, Pulse 68, Respiratory Rate 16, BP 143/67, Pulse Ox 97% HEENT: Head normocephalic, atraumatic. Eyes: Extraocular muscles are intact. Pupils are equal, round and reactive to light and accommodation. Ears: No lesions. Nose appeared normal. Throat: No exudate or erythema. NECK: Supple. No JVD, no carotid bruit. No lymphadenopathy or thyromegaly. LUNGS: Clear to auscultation. Percussion note normal. Chest symmetrical. HEART: S1, S2, no S3. Grade I/ systolic murmurs. No cyanosis or clubbing. No ascites. Pulses: Dorsalis pedis and posterior tibial pulses +1 to +2 both sides. ABDOMEN: Soft. Non-tender. Bowel sounds active. No CVA tenderness. No mass felt. EXTREMITIES: No edema. Full range of motion of all extremities, equal. NEUROLOGIC: No focal deficit. Cranial nerves II through XII are grossly intact. No headache, no double vision or headache. SKIN: Warm and dry. Intact. Turgor-normal. LYMPHATIC: No palpable lymph nodes/no lymphedema. MUSCULOSKELETAL: Normal joints with no swelling. Muscle tone is normal. LAB REVIEW: 07/02/22 04:45 07/02/22 04:45 07/02/22 04:45: Sodium 138.1, Potassium 4.02, Chloride 109.0 H, Carbon Dioxide 23.8, Anion Gap 9.32, BUN 16.6, Creatinine 0.68, Estimated GFR (MDRD) 82.00, BUN/Creatinine Ratio 24.41, Glucose 101.2 D, Calcium 8.68 07/02/22 04:45: WBC 9.48, RBC 4.01 L, Hgb 12.3, Hct 38.2, MCV 95.3, MCH 30.7, MCHC 32.2, RDW Coeff of Mariah 13.1, Plt Count 289, Immature Gran % (Auto) 0.3, Neut % (Auto) 60.2, Lymph % (Auto) 28.0, [place] % (Auto) 10.2 H, Eos % (Auto) 0.9, Baso % (Auto) 0.4, Neut # (Auto) 5.7, Lymph # (Auto) 2.7, [place] # (Auto) 1.0, Eos # (Auto) 0.1, Baso # (Auto) 0.0, Immature Gran # (Auto) 0.0 07/01/22 19:25: Urine Color Yellow, Urine Clarity Clear, Urine pH 5.5, Ur Specific [place] 1.015, Urine Protein Negative, Urine Glucose (UA) Negative, Urine Ketones Negative, Urine Blood Trace-lysed, Urine Nitrite Negative, Urine Bilirubin Negative, Urine Urobilinogen 0.2, Ur Leukocyte Esterase 1+ H, Urine Microscopic RBC 2-5, Urine Microscopic WBC 5-10, Ur Squamous Epith Cells 2-5 07/01/22 19:15: SARS CoV-2 RNA Rapid PATRICK Negative 07/01/22 18:25: Puncture Site Rb, Base Excess -0.4, O2 Saturation 97.0, ABG pH 7.48 H, ABG pCO2 31.0 L, ABG pO2 84.0 L, ABG HCO3 23.1, ABG Total CO2 24.1 H, Jorge Test Pos, Hemoglobin 1.6 H, Oxyhemoglobin 94.7 L, Carboxyhemoglobin 2.1 H, Total Hemoglobin 12.9, FiO2 % 21.0 07/01/22 18:06: Lactic Acid 1.95 07/01/22 18:06: Sodium 134.3 L, Potassium 3.93, Chloride 104.2, Carbon Dioxide 21.6 L, Anion Gap 12.43, BUN 22.3 H, Creatinine 0.84, Estimated GFR (MDRD) 64.00, BUN/Creatinine Ratio 26.54, Glucose 159.8 H, Calcium 9.21, Total Bilirubin 0.43, AST 31.0, ALT 25.2, Alkaline Phosphatase 73.2, Troponin I < 0.0 12, Total Protein 7.17, Albumin 3.95, Globulin 3.22, Albumin/Globulin Ratio 1.22 07/01/22 18:06: PT 10.4, INR 1.00 07/01/22 18:06: WBC 11.52 H, RBC 4.17 L, Hgb 12.8, Hct 39.1, MCV 93.8, MCH 30.7, MCHC 32.7, RDW Coeff of Mariah 13.1, Plt Count 312, Immature Gran % (Auto) 0.3, Neut % (Auto) 84.0 H, Lymph % (Auto) 9.0 L, [place] % (Auto) 6.3, Eos % (Auto) 0.1, Baso % (Auto) 0.3, Neut # (Auto) 9.7 H, Lymph # (Auto) 1.0, [place] # (Auto) 0.7, Eos # (Auto) 0.0, Baso # (Auto) 0.0, Immature Gran # (Auto) 0.0 ASSESSMENT: Please see below. 1. UTI seems to be resolving PLAN: 1. Continue Rocephin 2. Continue IV fluids 3. Cardiovascular and respiratory status is stable Plan and coordination of the patient's care discussed in the presence of Instruction Librarian and nurse. SCRIBED BY: HARITHA GONZALEZ Plastic Surgery Manager scribed while in presence of service performed by Dr. ALYSSA GONZALEZ on 07/02/22 ([id number])
[2022-07-02] MEDS: ARIMIDEX PO SCH (09:33)
[2022-07-02] MEDS: MUCINEX PO SCH ×2 (09:33→20:18)
[2022-07-02] MEDS: LOVENOX SUBCUT SCH (09:33)
--- NOTE | 2022-07-02 13:10 | RS.PTINEVL ---
Subjective - Patient information Date of Evaluation: 07/02/22 Date of Arrival on Unit: 07/01/22 Admitted From:: Home Diagnosis: UTI, weakness Usual Living Arrangement: Alone Living Arrangement Comments: son lives next door. Home Environment: House (1 step to enter home) Medical History: Dementia, Arthritis, Cancer (breast ) Medical History Comments:: hypothyroidism Surgical History: Hysterectomy, Mastectomy Medications: see chart Subjective Information/ Patient Comments:: pt states that she walks without AD at home. States her son brings her breakfast and lunch and she takes care of her supper. pt states that she thinks she "has laid down too long." - Level of function Prior to this admission, the patient could do the following:: Independent ADL's, Independent Ambulation, Perform Exhibit Preparator/Cooking (minimal) Current Level of Function: Partially Dependent Interventions - Objective Patient Orientation: Person, Place (pt confused regarding time and situation) Current Interventions: IV's, Telemetry Observation: pt is [place] Range of Motion - ROM Right Upper Extremity AROM: WFL's Left Upper Extremity AROM: WFL's Right Lower Extremity AROM: WFL's Left Lower Extremity AROM: WFL's Muscle Strength - Muscle Strength Right Upper Extremity Strength: Mild Weakness (grossly 4/5) Left Upper Extremity Strength: Mild Weakness (grossly 4/5) Right Lower Extremity Strength: Mild Weakness (hip flex 4-/5, knee flex/ext 4/5 ankle DF/PF 4/5) Left Lower Extremity Strength: Mild Weakness (hip flex 4-/5, knee flex/ext 4/5 ankle DF/PF 4/5) Sensation - Sensation Right Upper Extremity Sensation: Intact/Normal Left Upper Extremity Sensation: Intact/Normal Right Lower Extremity Sensation: Intact/Normal Left Lower Extremity Sensation: Intact/Normal Palpation Palpation Findings: None/Normal Balance - Sitting Balance and Reactions Static Sitting Balance: Good (good-) Dynamic Sitting Balance: Fair Sitting Equilibrium Reactions: Delayed Left, Delayed Right Sitting Protective Reactions: Delayed Left, Delayed Right - Standing Balance and Reactions Static Standing Balance: Poor Dynamic Standing Balance: Poor Standing Equilibrium Reactions: Delayed Left, Delayed Right Standing Protective Reactions: Delayed Left, Delayed Right - Comments Balance Assessment Comments: Tinetti balance scale 11/17 consitent with high risk of falls. When amb without AD pt demonstrated lateral LOB required min + to prevent falls, pt also with scissoring and deviation from path. pt with rwx had decreased LOB laterally however continued with occasional scissoring and deviation of path. Functional Mobility - Bed Mobility Rolling R/L: Supervision Supine to Sit: CGA Sit to Supine: CGA - Transfers Sit to Stand: CGA Stand to Sit: CGA Stand Pivot Transfers: CGA - Safety Awareness Safety Awareness: Good MALLORIE INDEX SCORE: n/a Ambulation - Ambulation Assistive Device Used: Rolling Walker Orthotic/Prosthetic Device: No Distance: 40ft +50ft Assistance needed with Ambulation: Min Assist Quality of Ambulation: pt initially amb 40ft without AD w MANAGER [employer]ANCIAL REPORTING with min +x 1. pt with decreased safety without AD. pt amb with rwx 50ft with min x 1 with occasional scissoring, decreased step length, flexed posture. Gait Deviations: Forward posture, Short stride, Scissor gait (occasional), Deviates from path Factors Affecting Ambulation: Decreased Balance, Weakness, Decreased Safety, Cognitive Status, Limited Endurance Treatment time - Time with patient Length of Evaluation: 22 Total treatment time: 28 Patient Education - Education Patient Education: Activity Modification, Education of Plan of Care Teaching Recipient: Patient Teaching Methods: Discussion (discussion regarding POC as well as safety with ambulation.) Assessment - Assessment Problem List:: Decreased level of function, Requires training/education, Decreased safety/Risk of falls, Weakness, Cognitive status limits abilities Rehab Potential: Good Further Therapy Indicated?: Yes Candidate for Swing Bed for Therapy Services?: Would need to reassess at later date due to confusion this date, however pt on IV antibiotics and may resolve. Evaluation Complexity: HISTORY: Medium, EXAM OF BODY SYSTEMS: Medium, CLINICAL PRESENTATION: Medium, CLINICAL DECISION MAKING: Medium Patient's Goal(s): Go home Short Term Goals GOAL #1: pt independent with rolling and scooting up in bed. Goal to be met by: 07/05/22 GOAL #2: Transfer sup to/from sit independently. Goal to be met by: 07/05/22 GOAL #3: Transfer sit to/from stand SBA Goal to be met by: 07/05/22 GOAL #4: pt amb with rwx 110ft with CGA with improved gait sequencing. Goal to be met by: 07/05/22 GOAL #5: Improve BLE strength 4 to 4+/5 Goal to be met by: 07/05/22 Pipe Fitter Supervisor Goals GOAL #1: pt independent with sup to/from sit to/from stand Goal to be met by: 07/07/22 GOAL #2: pt amb functional household distances with rwx with SBA Goal to be met by: 07/07/22 GOAL #3: Improve dyn stand balance as noted by tinetti score to Goal to be met by: 07/07/22 Plan Plan of Care: Therapeutic EX, Therapeutic Activity Other:: gait training Frequency of Treatment: 1-2 X day, as tolerated Duration of Treatment: 5 days Anticipated Discharge Destination: Home Treatment Diagnosis (ICD 10 Codes): difficulty walking R 26.2. impaired balance R 26.81. weakness M62.81. falls R 29.6 Has the Physician been added for Co-signature?: Yes
[2022-07-02] MEDS: ROCEPHIN 1 GM/50 ML D5W 1 GM/50 ML BAG IV SCH (20:17)
[2022-07-02] MEDS: CLARITIN PO SCH (20:17)
[2022-07-02] MEDS: PRAVACHOL PO SCH (20:18)
[2022-07-03 04:59] LABS: BASOPHILS # (AUTO) 0.1 K/uL (0-0.2); BASOPHILS % (AUTO) 0.5 % (0.0-3.0); EOSINOPHILS # (AUTO) 0.2 K/ul (0.0-0.7); HEMATOCRIT 39.9 % (37.0-47.0); IMMATURE GRANULOCYTE % (AUTO) 0.3 % (0.0-5.0); LYMPHOCYTES # (AUTO) 2.5 K/uL (0.60-3.4); LYMPHOCYTES % (AUTO) 22.4 (10.0-50.0); MEAN CORPUSCULAR HGB CONC 32.6 (31.8-35.4); NEUTROPHILS # (AUTO) 7.2 K/ul (2.0-6.9); NEUTROPHILS % (AUTO) 65.8 % (42.2-75.2); PLATELET COUNT 317 10^3/uL (140-440); RDW COEFFICIENT OF VARIATION 13.3 % (11.6-14.8); WHITE BLOOD COUNT 10.97 K/ul (4.6-10.2)
[2022-07-03 05:21] LABS: BLOOD UREA NITROGEN 10.9 mg/dL (7-17); CALCIUM 9.27 mg/dL (8.4-10.2); CARBON DIOXIDE 22.3 mmol/L (22-30.0); CHLORIDE 109.1 mmol/L (98-107); CREATININE 0.56 mg/dL (0.60-1.30); GLUCOSE 117.8 mg/dL (74-106); POTASSIUM 3.72 mmol/L (3.5-5.1); SODIUM 138.2 mmol/L (134.5-145)
[2022-07-03] MEDS: SYNTHROID PO SCH (05:51)
[2022-07-03] MEDS: LOVENOX SUBCUT SCH (08:47)
[2022-07-03] MEDS: ARIMIDEX PO SCH (08:47)
[2022-07-03] MEDS: MUCINEX PO SCH ×2 (08:47→21:19)
[2022-07-03] MEDS: CLARITIN PO SCH (21:19)
[2022-07-03] MEDS: PRAVACHOL PO SCH (21:19)
[2022-07-03] MEDS: ROCEPHIN 1 GM/50 ML D5W 1 GM/50 ML BAG IV SCH (21:20)
[2022-07-04 05:21] VITALS: BP 137/80; TEMP 98.3
[2022-07-04] MEDS: SYNTHROID PO SCH (05:34)
[2022-07-04] MEDS: LOVENOX SUBCUT SCH (09:14)
[2022-07-04] MEDS: MUCINEX PO SCH (09:14)
[2022-07-04] MEDS: ARIMIDEX PO SCH (09:14)
[2022-07-04 12:46] LABS: BASOPHILS % (AUTO) 0.3 % (0.0-3.0); EOSINOPHILS % (AUTO) 0.4 % (0.0-7.0); HEMATOCRIT 40.6 % (37.0-47.0); HEMOGLOBIN 13.6 g/dl (12.0-16.0); IMMATURE GRANULOCYTE % (AUTO) 0.2 % (0.0-5.0); LYMPHOCYTES # (AUTO) 2.4 K/uL (0.60-3.4); LYMPHOCYTES % (AUTO) 24.6 (10.0-50.0); MEAN CORPUSCULAR HEMOGLOBIN 31.4 pg (27.0-31.0); MEAN CORPUSCULAR HGB CONC 33.5 (31.8-35.4); MEAN CORPUSCULAR VOLUME 93.8 fl (81.0-99.0); MONOCYTES # (AUTO) 0.8 K/uL (0.4-2.0); MONOCYTES % (AUTO) 7.6 (0-10); NEUTROPHILS # (AUTO) 6.6 K/ul (2.0-6.9); NEUTROPHILS % (AUTO) 66.9 % (42.2-75.2); PLATELET COUNT 338 10^3/uL (140-440); RDW COEFFICIENT OF VARIATION 13.3 % (11.6-14.8); RED BLOOD COUNT 4.33 10^6/ul (4.20-5.40); WHITE BLOOD COUNT 9.82 K/ul (4.6-10.2)
[2022-07-04 12:57] LABS: ALANINE AMINOTRANSFERASE 22.3 U/L (0-35); ALBUMIN 4.02 g/dL (3.5-5.0); ALKALINE PHOSPHATASE 73.4 U/L (53-141); ASPARTATE AMINO TRANSFERASE 26.8 U/L (14-36); BILIRUBIN,TOTAL 0.42 mg/dL (0.2-1.3); BLOOD UREA NITROGEN 11.4 mg/dL (7-17); CALCIUM 9.7 mg/dL (8.4-10.2); CARBON DIOXIDE 26.2 mmol/L (22-30.0); CHLORIDE 104.3 mmol/L (98-107); CREATININE 0.63 mg/dL (0.60-1.30); POTASSIUM 4.01 mmol/L (3.5-5.1); SODIUM 137.4 mmol/L (134.5-145); TOTAL PROTEIN 7.32 g/dL (6.3-8.2)
--- NOTE | 2022-07-06 13:19 | PN ---
DATE OF SERVICE: 07/04/22 SUBJECTIVE: 87 year white female hospitalized with UTI. The patient's condition has improved. REVIEW OF SYSTEMS: CONSTITUTIONAL: No night sweats. No fatigue, malaise, lethargy. No fever or chills. HEENT: Eyes: No visual changes. No eye pain. No eye discharge. ENT: No runny nose. No epistaxis. No sinus pain. No sore throat. No odynophagia. No congestion. RESPIRATORY: No cough, no congestion. No hemoptysis. No shortness of breath. CARDIOVASCULAR: No angina symptoms. No CHF symptoms. No atypical chest pain for CAD. No palpitations. No PND. No orthopnea. GASTROINTESTINAL: No abdominal pain. No nausea or vomiting. No diarrhea or constipation. No hematemesis. No hematochezia. GENITOURINARY: No urgency. No frequency. No dysuria. No hematuria. No obstructive symptoms. No discharge. No pain. No significant abnormal bleeding. MUSCULOSKELETAL: No musculoskeletal pain; no joint swelling. NEUROLOGICAL: No headache. No neck pain. No syncope. No seizures. No dizziness. PSYCHIATRIC: Not anxious. No depression. No suicidal thoughts. No homicidal thoughts. SKIN: No rash. No lesions. No wounds. ENDOCRINE: No unexplained weight loss. No weight gain. HEMATOLOGIC/LYMPHATIC: No anemia. No purpura. No petechiae. No prolonged or excessive bleeding. No palpable lymph nodes. PHYSICAL EXAMINATION: VITAL SIGNS: Temperature 98, pulse 88, respiratory rate 18, blood pressure 137/80 and pulse ox 97% on room air. HEENT: Head normocephalic, atraumatic. Eyes: Extraocular muscles are intact. Pupils are equal, round and reactive to light and accommodation. Ears: No lesions. Nose appeared normal. Throat: No exudate or erythema. NECK: Supple. No JVD, no carotid bruit. No lymphadenopathy or thyromegaly. LUNGS: Clear to auscultation. Percussion note normal. Chest symmetrical. HEART: S1, S2, no S3. No murmurs. No cyanosis or clubbing. No ascites. Pulses: Dorsalis pedis and posterior tibial pulses +1 to +2 bilaterally. ABDOMEN: Soft. Nontender. Bowel sounds active. No CVA tenderness. No mass felt. EXTREMITIES: No edema. Full range of motion of all extremities, equal. NEUROLOGIC: No focal deficit. Cranial nerves II through XII are grossly intact. No headache. No double vision. SKIN: Not dry. Intact. Turgor - normal. LYMPHATIC: No palpable lymph nodes/no lymphedema. MUSCULOSKELETAL: Normal joints with no swelling. Muscle tone is normal. LABS: hgb 13, hct 39, WBC 10,000 normal differential, creatinine 0.5, BUN 10, potassium 3.7 ASSESSMENT: 1. UTI seems to have resolved PLAN: 1. The patient is going to be discharged home on Omnicef 300mg PO twice a day for 5 days. 2. She is advised to continue the rest of the medication as before. CONDITION: Stable. TIME SPENT: More than 30 minutes. Plan and coordination of the patient's care discussed in the presence of nurse. JANELLE
--- NOTE | 2022-07-06 13:29 | DS ---
DATE OF SERVICE: 07/04/22 FINAL DIAGNOSIS: 1. UTI 2. Dehydration 3. Dementia 4. Hypothyroidism 5. Dyslipidemia 6. History of C of the breast, left side with enlarged lymph nodes on CT scan followed by Dr. Person. 7. Severe DJD of the spine 8. Left mastectomy with history of C of the breast. DISCHARGE INSTRUCTIONS: Discharge home today. Followup in Dr. Allison's office on July 12 at 11am. MEDICATIONS AT DISCHARGE: Arimidex Synthroid Pravachol Zyrtec NEW PRESCRIPTIONS: Omnicef 300mg BID for 5 days DIET INSTRUCTIONS: Regular diet ACTIVITY: Avoid excessive heat. Activity as tolerated. LABS: Hgb 13, hct 39, WBC 10,000 normal differential, creatinine 0.5, BUN 10, potassium 3.7, GFR 100. HOSPITAL COURSE: 87 year old white female treated for UTI with Cefepime and improved. IV fluids were discontinued. Appetite improved. The patient at the time of discharge stable. The patient is going to be on Omnicef. The patient is to be seen in 5-7 days. TIME SPENT: More than 60 minutes. MTDD
--- NOTE | 2022-07-06 13:30 | PN ---
ADMISSION DAY: Level 5 REST OF THEM: Intermediate FINAL DAY: D as in discharge MTDD
--- NOTE | 2022-07-13 14:36 | HP ---
DATE OF SERVICE: 07/01/22 REASON FOR HOSPITALIZATION: Mild to moderate weakness, 5 pound weight loss, Increase in confusion with shortness of breath. The patient is poor historian and confused at times. HISTORY OF PRESENT ILLNESS: The patient was seen and examined in the emergency room by Dr. Alber Tapia and was worked up. The patient had mild dehydration with creatinine of 0.8, BUN 22. Blood gasses were acceptable. Urine showed leukocyte esterase +1, WBC and urine cast was present. PAST MEDICAL HISTORY/PAST SURGICAL HISTORY: Hypothyroidism Dyslipdiemia REVIEW OF SYSTEMS: CONSTITUTIONAL: No night sweats. No fever or chills. Weakness and fatigue. HEENT: Eyes: No visual changes. No eye pain. No eye discharge. ENT: No runny nose. No epistaxis. No sinus pain. No sore throat. No odynophagia. No ear pain. No congestion. RESPIRATORY: No cough, no congestion. No hemoptysis. Shortness of breath. CARDIOVASCULAR: No angina symptoms. No CHF symptoms. No atypical chest pain for CAD. No palpitations. No PND. No orthopnea. GASTROINTESTINAL: No abdominal pain. No nausea or vomiting. No diarrhea or constipation. No hematemesis. No hematochezia. Poor appetite lately with 5 pound weight loss. GENITOURINARY: No urgency. No frequency. No dysuria. No hematuria. No obstructive symptoms. No discharge. No pain. No significant abnormal bleeding. Unable to get anything out of her in a way of dysuria or frequency. MUSCULOSKELETAL: No musculoskeletal pain. No joint swelling. No arthritis.Generalized weakness. NEUROLOGICAL: No headache. No neck pain. No syncope. No seizures. No dizziness. Confused lately more than usual. PSYCHIATRIC: Not anxious. No depression. No suicidal thoughts. No homicidal thoughts. SKIN: No rash. No lesions. No wounds. ENDOCRINE: No unexplained weight loss. No weight gain. HEMATOLOGIC/LYMPHATIC: No anemia. No purpura. No petechiae. No prolonged or excessive bleeding. No palpable lymph nodes. PERSONAL/FAMILY/SOCIAL HISTORY: The patient is living by herself with help of son who lives near by. Nonsmoker. No alcohol abuse. Long history of dementia which is mild to moderate. She has functional. MEDICATIONS: Arimidex Pravachol Synthroid Mucinex Zyrtec ALLERGIES: None PHYSICAL EXAMINATION: GENERAL: The patient is alert but confused. VITAL SIGNS: Temperature 98.9, pulse 110-120, respiratory rate 20, blood pressure 154/82 and pulse ox 96%. HEENT: Head normocephalic, atraumatic. Eyes: Extraocular muscles are intact. Pupils are equal, round and reactive to light and accommodation. Ears: No lesions. Nose appeared normal. Throat: No exudate or erythema. NECK: Supple. No JVD, no carotid bruit. No lymphadenopathy or thyromegaly. LUNGS: Decreased breath sounds but clear to auscultation. Percussion note normal. Chest symmetrical. HEART: S1, S2, no S3. No murmur. No cyanosis or clubbing. No ascites. Pulses: Dorsalis pedis and posterior tibial pulses +1 to +2 bilaterally. ABDOMEN: Soft. Nontender. Bowel sounds active. No CVA tenderness. No mass felt. EXTREMITIES: No edema. Full range of motion of all extremities, equal. NEUROLOGIC: No focal deficit. Cranial nerves II through XII are grossly intact. No headache, no double vision or headache. SKIN: Not dry. Intact. Turgor - normal. LYMPHATIC: No palpable lymph nodes/no lymphedema. MUSCULOSKELETAL: Normal joints with no swelling. Muscle tone is normal. LABS: Arterial blood gasses pO2 84, pCo2 31, pH 7.48 with 97% saturation, creatinine 0.8, BUN 22, potassium 3.9. Troponin negative. Calcium normal. GFR 64cc per minute. Chest x-ray negative. CT scan of the head showed atrophy with atherosclerosis. U/A abnormal with 1+ leukocyte esterase and some WBC and red blood cells noted. COVID negative. ASSESSMENT: 1. Confusion. Weakness likely cause could be UTI 2. Dehydration 3. Dementia worsening 4. History of C of the breast 5. Dyslipidemia PLAN: 1. Start IV fluids 2. Watch for fluid overload 3. Start on Rocephin IV treated for UTI 4. Daily CBC and CMP CONDITION:Stable. TIME SPENT: More than 70 minutes. [facility]
== END 2022-07-04 14:25 | disposition home or self-care (01) | DRG 690 ==
LOC: ED 17:30 → MEDSURG B 21:33
PROVIDERS: ADMIT Internal Medicine; ATTEND Internal Medicine
DX: E78.5 Hyperlipidemia, unspecified; Z51.81 Encounter for therapeutic drug level monitoring; R29.6 Repeated falls; M51.36 Other intervertebral disc degeneration, lumbar region; E86.0 Dehydration; F03.90 Unspecified dementia, unspecified severity, without behavioral disturbance, psychotic disturbance, mood disturbance, and anxiety; R26.81 Unsteadiness on feet; R06.02 Shortness of breath; Z85.3 Personal history of malignant neoplasm of breast; Z79.899 Other long term (current) drug therapy; R82.79 Other abnormal findings on microbiological examination of urine; Z20.822 Contact with and (suspected) exposure to COVID-19; M62.81 Muscle weakness (generalized); E03.9 Hypothyroidism, unspecified; N39.0 Urinary tract infection, site not specified

== ENCOUNTER 2025-08-16 13:45 | Observation (INO) ==
[2025-08-16 16:35] LABS: IMMATURE GRANULOCYTE # (AUTO) 0.1 (0.0-1.0); IMMATURE GRANULOCYTE % (AUTO) 0.5 % (0.0-5.0); RDW COEFFICIENT OF VARIATION 13.2 % (11.6-14.8)
[2025-08-16] MEDS: BOOSTRIX TDAP IM ONE (16:40)
[2025-08-16 16:53] LABS: CREATININE 0.75 mg/dL (0.60-1.30)
--- NOTE | 2025-08-16 17:20 | DI ---
EXAM: AP PELVIS AND TWO VIEWS OF THE LEFT HIP HISTORY: Fall. COMPARISON: 03/10/2021. FINDINGS: see impression. IMPRESSION: Generalized osteopenia. As seen, no definitive fracture line. Evaluation for subtle fractures is limited. If symptoms persist, or if there is clinical concern for occult injury, recommend follow-up MRI examination. Degenerative changes to the hips, pelvis and spine.
--- NOTE | 2025-08-16 17:23 | CT ---
CT HEAD WITHOUT CONTRAST INDICATION: 89-year-old female patient fall from standing onto forehead 6 hours ago COMPARISON: CT head 07/01/2022 TECHNIQUE: Axial CT of the head from the skull base to the vertex without administration of intravenous contrast. Coronal and sagittal reformatted images were performed. One or more of the following dose reduction techniques were used: Automated exposure control, adjustment of the mA and/or kV according to patient size, use of iterative reconstruction technique. FINDINGS: Exam is mildly to moderately limited by motion artifact.No acute intracranial hemorrhage, mass effect, or midline shift. No large acute territorial ischemia, although this maybe undetectable in the hyperacute/acute phases. No large intracranial mass given limits of this exam without intravenous contrast. Moderate global volume loss with concordant ventriculomegaly, age-appropriate. Basilar cisterns are patent.Atheromatous calcifications of left vertebral distal internal carotid arteries. Mild periventricular chronic microangiopathy. Possible minimal mastoid air cell effusions and/or partial volume averaging artifact and/or motion artifact. Middle ears are clear. Calvarium is intact. Large amount of fluid within the left frontal sinus. Fluid and anterior left ethmoid air cells mild mucosal thickening in bilateral ethmoid air cells. Bilateral ocular globe lens replacement(s). IMPRESSION: No acute intracranial process. All CT scans are performed using dose optimization techniques as appropriate to the performed exam and include at least one of the following: Automated exposure control, adjustment of the mA and/or kV according to size, and the use of iterative reconstruction technique.
--- NOTE | 2025-08-16 17:28 | CT ---
EXAM: CT FACIAL BONES HISTORY: Fall, facial injury. TECHNIQUE: CT facial bones without contrast. 3-mm axial sections. Coronal and sagital reformations. FINDINGS: No fracture is identified. Orbits have normal form. The intraorbital fat and structures are preserved. Mandible is intact. No temporomandibular joint dislocation. No acute nasal bone deformity is seen. The paranasal sinuses reveal opacification within the left frontal sinus consistent with chronic sinusitis. Mastoid process air cells are aerated. See also CT cervical spine and CT head reports. - - - - - IMPRESSION: 1. No fractures identified. - - - - - All CT scans are performed using dose optimization techniques as appropriate to the performed exam and include at least one of the following: Automated exposure control, adjustment of the mA and/or kV according to size, and the use of iterative reconstruction technique.
--- NOTE | 2025-08-16 17:28 | CT ---
EXAM: CT CERVICAL SPINE WITHOUT CONTRAST. HISTORY: Fall COMPARISON: 01/26/2019 TECHNIQUE: Serial axial images of the cervical spine were obtained from the skull base through the lung apices without contrast. These were viewed in multiple planes. FINDINGS: Straightening of the cervical lordosis, positioning versus spasm. Vertebral body heights are maintained. No discrete fracture line. No prevertebral soft tissue edema. Multilevel degenerative changes. IMPRESSION: No acute fracture. If symptoms persist, or if there is concern for occult injury, recommend follow- up MRI. All CT scans are performed using dose optimization techniques as appropriate to the performed exam and include at least one of the following: Automated exposure control, adjustment of the mA and/or kV according to size, and the use of iterative reconstruction technique.
[2025-08-16] MEDS: LIDOCAINE 1% 5 ML SDV SUBCUT ONE (18:03)
[2025-08-16] MEDS ORDERED: TYLENOL PO PRN (19:17)
[2025-08-16 21:04] LABS: GLUCOSE, URINE (UA) Negative (NEGATIVE); LEUKOCYTE ESTERASE ,URINE Trace (NEGATIVE); URINE, BLOOD 1+ (NEGATIVE)
[2025-08-16 21:05] LABS: URINE RBC, MICROSCOPIC 0-2 (0-2)
[2025-08-16 21:15] VITALS: BMI 22.3
[2025-08-16] MEDS: ZYRTEC PO SCH (23:41)
[2025-08-16] MEDS: ROCEPHIN 1 GM/50 ML D5W 1 GM/50 ML BAG IV SCH (23:42)
--- NOTE | 2025-08-17 03:53 | ED.PDOC ---
General [facility] ED Provider: Dr. BEBETO CABALLERO MD Chief Complaint: Fall Stated Complaint: Patient is an 89-year-old female that is presenting to the emergency department for evaluation after a fall. She is accompanied by her son who assists in providing history given the patient's dementia. Son states that the patient lives alone but he checks on her 3-4 times a day. States that he checked her earlier today around 10:30 in the morning and she was sitting on her couch and was found to have a cut on her forehead. The patient states that she fell and hit her coffee table. Patient is unable to recall what led to her falling and is unsure if she passed out or if she simply tripped on something. She denies any active headache at this time. Denies any chest pain, shortness of breath, palpitations. Denies any melena or hematochezia. Denies any vision changes. Son notes that the patient has been ambulatory Time Seen by Provider: 08/16/25 14:12 Mode of Arrival: Walk-In Information Source: Patient and Family Exam Limitations: Dementia Primary Care Provider: EVAN ANG APRN Nursing and Triage Documentation Reviewed and Agree: Yes Opioid Naive vs. Tolerant Does Patient Take Opioids?: No Is Patient Opioid Naive?: Yes What is Opioid Naive?: *Opioid Naive implies the patient is not already taking opioids or not chronically receiving opioids on a daily basis. *PRN dosing is not "usually" associated with tolerance. *Patients are at higher risk of over-sedation and aspiration. What is Opioid Tolerant?: *Opioid Tolerance implies less than the expected response to an opioid. *Acquired tolerance is defined by the patient taking 60mg of oral morphine daily (or equianalgesic dose of another opioid) for 1 week or more. *Often associated with chronic pain. *May take more than usual dose to achieve desired pain control. Review of Systems Review Of Systems Constitutional: Reports No symptoms Respiratory: Reports No symptoms Cardiac: Reports No symptoms GI: Reports No symptoms : Reports No symptoms Musculoskeletal: Reports Other (Pain over the left hip) Skin: Reports Bruising (Over the left eyebrow) Neurological: Reports No symptoms PFSH PFSH Family History FATHER Myocardial infarct Social History (Reviewed 08/16/25 @ 21:05 by NOVA TYLER Smoking and tobacco status: Never smoker Second hand smoke exposure: No Smoking risk assessment performed: No Alcohol intake: never Counseling given: No Substance use type: does not use Viridiana/bahai: CHEONDO[employer] Special viridiana needs: No Agree to transfusion: Yes Adopted: No Caregiver/support person: No Foster care: No Household members: none Housing: house Marital status: D Lives independently: Yes Daycare: no daycare Number of children: 6 service: No FDC: No Current occupational status: retired History of recent travel: No Do you think of yourself as: straight/heterosexual Current gender identity: female Seatbelt use: always Helmet use: No Drives intoxicated or rides with 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 Person 10/11 Z90.10 - Acquired absence of unspecified breast and nipple (ICD-10) History of hysterectomy for cancer Z90.710 - Acquired absence of both cervix and uterus (ICD-10) Female Reproductive History Menstrual Hx Hysterectomy: Yes Hx Tubal Ligation: No Physical Exam Physical Exam Appearance: Reports No pain distress and Well-nourished Pain Distress: None Eyes: Reports JOSE MARTIN, EOMI and Conjunctiva clear ENT: Reports Nose normal and Oropharynx normal; Denies Epistaxis Neck: Supple Respiratory: Reports Airway patent, Breath sounds clear and Breath sounds equal; Denies Breath sounds diminished Cardiovascular: Reports RRR and Pulses normal GI/: Reports Soft and Nontender Musculoskeletal: Reports Other (Mild tenderness to palpation of the left hip but able to bear weight on this extremity. There is no pain with axial loading or logroll. Full musculoskeletal survey did not reveal any other areas of tenderness to palpation.) Skin: Reports Warm, Dry and Other (Ecchymosis present over the left lateral eyebrow no underlying tenderness to palpation. 4 cm linear laceration over the central forehead that extends to the muscular layer but no signs of glial involvement) Neurological: Reports Sensation intact, Motor intact and Alert Interpretation EKG Interpretation EKG Interpretation By: ED Physician Time of EKG #1: 16:30 Rate: Normal Rhythm: Sinus Ectopy: None ST Segment: Normal Interpretation: Normal sinus rhythm, no findings concerning for ACS or dysrhythmia. Physician Progress Note Physician Progress Note: Patient is an 89-year-old female who is presenting to the emergency department for evaluation of head trauma after a fall is unclear if it was secondary to a syncopal event or mechanical in nature. Plain film imaging of the left hip was performed given her tenderness to palpation of that area although I did have low clinical suspicion for a hip fracture given that she was ambulatory on this extremity and had negative logroll and negative axial loading. Imaging was interpreted by the radiologist as showing no evidence of acute fracture or dislocation. Also obtained CT head, maxillofacial, and cervical spine without contrast given her head trauma earlier today. This imaging did not show any evidence of acute intracranial hemorrhage as interpreted by me. As interpreted by the radiologist there were no findings that were concerning for cervical spine fracture or subluxation. Also no findings are concerning for maxillofacial fracture per radiology interpretation. Laceration over the forehead was anesthetized using around 3 cc of 1% lidocaine without epinephrine. Area was then copiously irrigated with normal saline solution. Multilayer closure was performed of this 4 cm laceration with 1 absorbable 5-0 suture placed and followed by linear interrupted closure using 3 suture throws of 5 oh nonabsorbable. These will need to be removed in 7 to 10 days. Family was counseled on this. Tetanus also updated as it is unclear when her most recent 1 was. Syncopal workup was also performed as it is unclear at this time and the patient had a mechanical fall or if it was related to a syncopal episode. This includes a unremarkable ECG that is detailed above in the interpretation section that was nonconcerning for ACS or dysrhythmia. Also obtained a troponin that was within normal limits which does not suggest any active cardiac ischemia as the underlying etiology. White blood cell count was minimally elevated at 12.54 which may be secondary simply to the marginalization from her trauma. Basic metabolic panel not reveal any significant electrolyte abnormalities aside from mild BUN increase of 20 but creatinine is within normal limits. Glucose is notably within normal limits. Urinalysis was obtained for concern that weakness could be secondary to UTI. It did show positive nitrites and urine bacteria present as well as trace leukocyte esterase which could be concerning for UTI. Will therefore start the patient on ceftriaxone for treatment of this. Given the patient's age and risk factors we will admit her to the hospital for having a formal echocardiography study performed to ensure there is no underlying structural cardiac issues that could have caused syncopal episode. She will be a telemetry admit. Course Course 08/16/25 16:20 08/16/25 16:20 Orders, Labs, Meds: Lab Review 08/16/25 08/16/25 16:20 16:20 WBC 12.54 H RBC 4.39 Hgb 13.6 Hct 42.8 MCV 97.5 MCH 31.0 MCHC 31.8 RDW Coeff of Mariah 13.2 Plt Count 386 Immature Gran % (Auto) 0.5 Neut % (Auto) 68.1 Lymph % (Auto) 22.4 [place] % (Auto) 7.8 Eos % (Auto) 0.6 Baso % (Auto) 0.6 Neut # (Auto) 8.6 H Lymph # (Auto) 2.8 [place] # (Auto) 1.0 Eos # (Auto) 0.1 Baso # (Auto) 0.1 Immature Gran # (Auto) 0.1 Sodium 137.7 Potassium 3.90 Chloride 104.9 Carbon Dioxide 26.5 Anion Gap 10.20 BUN 20.0 H Creatinine 0.75 Estimated GFR (MDRD) 73.00 BUN/Creatinine Ratio 26.66 Glucose 116.0 H Calcium 9.20 Total Bilirubin 0.49 AST 22.5 ALT 17.7 Alkaline Phosphatase 81.1 Troponin I < 0.012 Total Protein 7.65 Albumin 4.20 Globulin 3.45 Albumin/Globulin Ratio 1.21 Blood Type O POSITIVE O POSITIVE Antibody Screen Negative Orders Category Date Time Status PLACE PATIENT OBSERVATION .TO MEDSURG (MONITORED BED ADMISSION 08/16/25 18:42 Active ) EKG-(ED & IP/OBS ONLY) Stat CARDIO 08/16/25 16:09 Completed INTAKE & OUTPUT Q8HR CARE 08/16/25 18:42 Active IP: INSERT SALINE LOCK ONCE CARE 08/16/25 18:42 Active TELEMETRY MONITORING TELE CARE 08/16/25 18:42 Active VITAL SIGNS Q4H CARE 08/16/25 18:42 Active REGULAR DIET DIETARY 08/16/25 Dinner Ordered CBC W/ AUTO DIFF Stat LAB 08/16/25 16:20 Completed CMP [COMPREHENSIVE METABOLIC PANEL] Stat LAB 08/16/25 16:20 Completed TROPONIN I Stat LAB 08/16/25 16:20 Completed TYPE AND SCREEN Stat LAB 08/16/25 16:20 Completed Diphth,Pertuss,& Tetanus [Boostrix Tdap (>/= 7 Y[place])] Meds 08/16/25 16:14 Discontinued 0.5 ml IM .ONCE ONE Lidocaine HCl/Pf [Lidocaine 1% 5 ml Sdv] Meds 08/16/25 17:52 Discontinued 5 ml SUBCUT ONCE ONE RESUSCITATION STATUS Routine OTHERS 08/16/25 18:42 Completed RESUSCITATION STATUS Routine OTHERS 08/16/25 18:[address] CERVICAL SPINE W/O CONTRAST Stat RADS 08/16/25 16:[address] HEAD W/O CONTRAST Stat RADS 08/16/25 16:[address] MAXILLOFACIAL W/O CONTRAST Stat RADS 08/16/25 16:09 Completed HIP, LEFT 2VWS W OR W/O PELVIS Stat RADS 08/16/25 16:15 Completed Medications Generic Name Dose Route Start Last Admin Trade Name Freq PRN Reason Stop Dose Admin Acetaminophen 650 mg 08/16/25 19:17 Acetaminophen 325 Mg Tablet PO Q4H PRN Mild Pain Anastrozole 1 mg 08/17/25 09:00 Anastrozole 1 Mg Tablet PO DAILY VALERIE Cetirizine HCl 10 mg 08/16/25 21:15 08/16/25 23:41 Cetirizine Hcl 10 Mg Tablet PO 10 mg BEDTIME VALERIE Administration Escitalopram Oxalate 5 mg 08/17/25 09:00 Escitalopram Oxalate 10 Mg Tablet PO DAILY VALERIE CEFTRIAXONE/D5W 1 GM PREMIX 1 gm in 50 mls @ 100 mls/hr 08/16/25 22:00 08/16/25 23:42 Rocephin 1 Gm/50 Ml D5w IV 08/19/25 21:59 100 mls/hr BEDTIME VALERIE Administration Levothyroxine Sodium 50 mcg 08/17/25 06:00 Levothyroxine Sodium 50 Mcg Tablet PO QDAC2 VALERIE Pravastatin Sodium 80 mg 08/17/25 09:00 Pravastatin Sodium 40 Mg Tablet PO DAILY VALERIE Discontinued Medications Generic Name Dose Route Start Last Admin Trade Name Freq PRN Reason Stop Dose Admin Diphtheria/Pertussis/Tetanus Vacc 0.5 ml 08/16/25 16:14 08/16/25 16:40 Diphth,Pertuss(Acell),Tet (>/= 7 [place]) 0.5 Ml Disp.Syrin IM 08/16/25 16:15 0.5 ml .ONCE ONE Administration Lidocaine HCl 5 ml 08/16/25 17:52 08/16/25 18:03 Lidocaine 1% 5 Ml Sdv SUBCUT 08/16/25 17:53 5 ml ONCE ONE Administration Vital Signs: Temp Pulse Resp BP Pulse Ox 08/16/25 14:31 97.6 F 89 16 136/70 97 Discharge Plan Discharge Patient Disposition: PLACED OBSERVATION Discharge Problem: Syncope Did you review [place] [employer] RECEIVING CLERK for ALL controlled substances?: No ED Provider: BEBETO CABALLERO
[2025-08-17] MEDS: SYNTHROID PO SCH (05:05)
[2025-08-17 05:29] LABS: IMMATURE GRANULOCYTE # (AUTO) 0.0 (0.0-1.0); IMMATURE GRANULOCYTE % (AUTO) 0.3 % (0.0-5.0); RDW COEFFICIENT OF VARIATION 13.2 % (11.6-14.8)
[2025-08-17 05:32] LABS: CREATININE 0.58 mg/dL (0.60-1.30)
[2025-08-17] MEDS: LEXAPRO PO SCH (08:53)
[2025-08-17] MEDS: PRAVACHOL PO SCH (08:54)
[2025-08-17] MEDS: ARIMIDEX PO SCH (08:54)
--- NOTE | 2025-08-17 10:19 | PCM ---
Date of Service Date Seen by Provider: 08/17/25 Time Seen by Provider: 08:45 Admit Day/Time Admission Date: 08/16/25 Admission Time: 18:40 Reason for Admission Chief Complaint: SYNCOPE Hospital Provider Hospital Provider: SEBASTIAN LOZOYA, [facility] Primary Care Physician Primary Care Physician: EVAN ANG APRN History of Present Illness History of Present Illness: 89 yo female with pmh of dementia, hypothyroidism, HLD, presented to the ER following a fall. Due to dementia patient is poor historian and does not remember what happened. Struck her head and sustained a laceration to the L forehead. ERP closed with 3 sutures. Due to patient's inability to recall what happened and was unwitnessed fall, admitted to observation. Found to have UTI on UA on admission. Patient unable to provide HPI and ROS due to dementia. Denies any complaints at this time. Case Discussed With Case Discussed With: Patient's case was discussed with the ER Physicians, Dr. Choudhary [facility] Surgical History H/O mastectomy Dr. Person 10/11 Z90.10 - Acquired absence of unspecified breast and nipple (ICD-10) History of hysterectomy for cancer Z90.710 - Acquired absence of both cervix and uterus (ICD-10) Family History FATHER Myocardial infarct Social History Smoking and tobacco status: Never smoker Second hand smoke exposure: No Smoking risk assessment performed: No Alcohol intake: never Counseling given: No Substance use type: does not use Viridiana/mormon: [place] Special viridiana needs: No Agree to transfusion: Yes Adopted: No Caregiver/support person: No Foster care: No Household members: none Housing: house Marital status: D Lives independently: Yes Daycare: no daycare Number of children: 6 service: No MCC: No Current occupational status: retired History of recent travel: No Do you think of yourself as: straight/heterosexual Current gender identity: female Seatbelt use: always Helmet use: No Drives intoxicated or rides with intoxicated 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 Water heater temperature set < 120 degrees: Yes Working smoke detector in home: Yes Fire extinguisher in home: Yes Carbon monoxide detector in home: Yes Firearms in home: No Allergies Allergies Allergy/AdvReac Type Severity Reaction Status Date / Time No Known Allergies Allergy Verified 08/16/25 14:29 Current Medications Home Medications Acetaminophen (Acetaminophen 325 Mg Tablet) 650 mg PO Q4H PRN PRN Reason: Mild Pain Anastrozole (Anastrozole 1 Mg Tablet) 1 mg PO DAILY ON LICENSE OF [facility] Last Admin: 08/17/25 08:54 Dose: 1 mg Cetirizine HCl (Cetirizine Hcl 10 Mg Tablet) 10 mg PO BEDTIME ON LICENSE OF [facility] Last Admin: 08/16/25 23:41 Dose: 10 mg Escitalopram Oxalate (Escitalopram Oxalate 10 Mg Tablet) 5 mg PO DAILY ON LICENSE OF [facility] Last Admin: 08/17/25 08:53 Dose: 5 mg CEFTRIAXONE/D5W 1 GM PREMIX (Rocephin 1 Gm/50 Ml D5w) 1 gm in 50 mls @ 100 mls/hr IV BEDTIME VALERIE Stop: 08/19/25 21:59 Last Admin: 08/16/25 23:42 Dose: 100 mls/hr Levothyroxine Sodium (Levothyroxine Sodium 50 Mcg Tablet) 50 mcg PO QDAC2 ON LICENSE OF [facility] Last Admin: 08/17/25 05:05 Dose: 50 mcg Pravastatin Sodium (Pravastatin Sodium 40 Mg Tablet) 80 mg PO DAILY ON LICENSE OF [facility] Last Admin: 08/17/25 08:54 Dose: 80 mg Sodium Chloride (0.9% Sodium Chloride 10 Ml Disp.Syrin) 1 syr IVF Q8HR ON LICENSE OF [facility] Last Admin: 08/17/25 05:12 Dose: 1 syr cetirizine 10 mg tablet (Zyrtec) 10 mg PO BEDTIME 07/01/22 [History Confirmed 08/17/25] fluticasone propionate 50 mcg/actuation nasal spray,suspension (Flonase Allergy Relief) 1 spray intranasal QDAY PRN allergy symptoms 01/17/23 [History Confirmed 08/17/25] levothyroxine 50 mcg tablet See Rx Instructions .Route .COMPLEX #30 tabs 08/20/24 [Rx Confirmed 08/17/25] anastrozole 1 mg tablet 1 mg PO DAILY #30 tabs 03/25/25 [Rx Confirmed 08/17/25] pravastatin 80 mg tablet 80 mg PO DAILY #30 tabs 03/25/25 [Rx Confirmed 08/17/25] escitalopram oxalate 10 mg tablet 5 mg (1/2 x 10 mg) PO DAILY #15 tabs 05/23/25 [Rx Confirmed 08/17/25] Opioid Naive vs. Tolerant Does Patient Take Opioids?: No Is Patient Opioid Naive?: Yes What is Opioid Naive?: *Opioid Naive implies the patient is not already taking opioids or not chronically receiving opioids on a daily basis. *PRN dosing is not "usually" associated with tolerance. *Patients are at higher risk of over-sedation and aspiration. Is Patient Opioid Tolerant?: No What is Opioid Tolerant?: *Opioid Tolerance implies less than the expected response to an opioid. *Acquired tolerance is defined by the patient taking 60mg of oral morphine daily (or equianalgesic dose of another opioid) for 1 week or more. *Often associated with chronic pain. *May take more than usual dose to achieve desired pain control. Physical examination Most Recent Vital Signs: Most Recent Vital Signs Temperature 97.7 F 08/17/25 05:14 Temperature Source Temporal Artery Scan 08/17/25 05:14 Temperature Source Temporal Artery Scan 08/16/25 14:31 Pulse Rate 86 08/17/25 05:14 Respiratory Rate 18 08/17/25 05:14 Blood Pressure 141/84 H 08/17/25 05:14 Blood Pressure Mean 103 08/17/25 05:14 Blood Pressure Right Arm 153/80 08/16/25 20:15 Blood Pressure Location Right Arm 08/17/25 05:14 Blood Pressure Position Supine 08/17/25 05:14 O2 Sat by Pulse Oximetry 96 08/17/25 05:14 Oxygen Delivery Method Room Air 08/17/25 09:00 Height 5 ft 4 in 08/16/25 20:15 Weight 58.9 kg 08/16/25 20:15 Telemetry Type Remote Telemetry 08/17/25 01:00 Telemetry Monitoring Continues 08/17/25 01:00 Telemetry Heart Rate 84 08/17/25 01:00 EKG KS Interval 0.19 08/17/25 01:00 EKG QRS Interval 0.07 08/17/25 01:00 Telemetry Strip Reading SR 08/17/25 01:00 Appearance: Positive No Apparent Distress Skin: Positive Warm, Good Color, Ecchymosis (L eyebrow) and Other (3 sutures to L forehead, CDI) HEENT: Positive Normocephalic and PERRLA Neck: Positive Supple and Midline Trachea Chest/Lungs: Positive Symmetrical With Equal Breath Sounds, Clear to Auscultation Bilaterally and Good Air Movement all 4 Lung Barrera; Negative Rales, Rhonci or Wheezes Heart: Positive RRR and Pulses Normal GI/: Positive Soft, Nontender, Bowel Sounds Normal and No Distention Musculoskeletal: Positive Not Examined Extremities: Positive Intact Peripheral Pulses, Stable Joints Without Laxity and Good ROM in All Joints; Negative Edema Neurological: Positive Sensation Intact, Motor intact, Reflexes Intact, Alert and Disorinted Labs This Visit Labs This Visit: Labs This Visit 08/16/25 08/16/25 08/16/25 16:20 16:20 19:25 WBC 12.54 H RBC 4.39 Hgb 13.6 Hct 42.8 MCV 97.5 MCH 31.0 MCHC 31.8 RDW Coeff of Mariah 13.2 Plt Count 386 Immature Gran % (Auto) 0.5 Neut % (Auto) 68.1 Lymph % (Auto) 22.4 [place] % (Auto) 7.8 Eos % (Auto) 0.6 Baso % (Auto) 0.6 Neut # (Auto) 8.6 H Lymph # (Auto) 2.8 [place] # (Auto) 1.0 Eos # (Auto) 0.1 Baso # (Auto) 0.1 Immature Gran # (Auto) 0.1 Sodium 137.7 Potassium 3.90 Chloride 104.9 Carbon Dioxide 26.5 Anion Gap 10.20 BUN 20.0 H Creatinine 0.75 Estimated GFR (MDRD) 73.00 BUN/Creatinine Ratio 26.66 Glucose 116.0 H Calcium 9.20 Total Bilirubin 0.49 AST 22.5 ALT 17.7 Alkaline Phosphatase 81.1 Troponin I < 0.012 < 0.012 Total Protein 7.65 Albumin 4.20 Globulin 3.45 Albumin/Globulin Ratio 1.21 Urine Color Urine Clarity Urine pH Ur Specific [place] Urine Protein Urine Glucose (UA) Urine Ketones Urine Blood Urine Nitrite Urine Bilirubin Urine Urobilinogen Ur Leukocyte Esterase Urine Microscopic RBC Urine Microscopic WBC Ur Squamous Epith Cells Urine Bacteria Blood Type O POSITIVE O POSITIVE Antibody Screen Negative 08/16/25 08/17/25 20:50 04:50 WBC 10.87 H RBC 4.14 L Hgb 13.0 Hct 40.1 MCV 96.9 MCH 31.4 H MCHC 32.4 RDW Coeff of Mariah 13.2 Plt Count 342 Immature Gran % (Auto) 0.3 Neut % (Auto) 62.5 Lymph % (Auto) 24.2 [place] % (Auto) 11.0 H Eos % (Auto) 1.6 Baso % (Auto) 0.4 Neut # (Auto) 6.8 Lymph # (Auto) 2.6 [place] # (Auto) 1.2 Eos # (Auto) 0.2 Baso # (Auto) 0.0 Immature Gran # (Auto) 0.0 Sodium 135.8 Potassium 4.33 Chloride 105.9 Carbon Dioxide 23.2 Anion Gap 11.03 BUN 16.8 Creatinine 0.58 L Estimated GFR (MDRD) 98.00 BUN/Creatinine Ratio 28.96 Glucose 113.1 H Calcium 8.93 Total Bilirubin 0.62 AST 22.7 ALT 15.6 Alkaline Phosphatase 70.6 Troponin I Total Protein 6.74 Albumin 3.69 Globulin 3.05 Albumin/Globulin Ratio 1.20 Urine Color Yellow Urine Clarity Slightly Urine pH 5.5 Ur Specific [place] 1.025 Urine Protein Negative Urine Glucose (UA) Negative Urine Ketones 1+ H Urine Blood 1+ H Urine Nitrite Positive H Urine Bilirubin Negative Urine Urobilinogen 0.2 Ur Leukocyte Esterase Trace H Urine Microscopic RBC 0-2 Urine Microscopic WBC 5-10 Ur Squamous Epith Cells 2-5 Urine Bacteria 3+ Blood Type Antibody Screen Microbiology This Visit 08/16/25 20:50 Urine,Catheterized Urine Culture - Preliminary Imaging Imaging: CT HEAD WITHOUT CONTRAST INDICATION: 89-year-old female patient fall from standing onto forehead 6 hours ago COMPARISON: CT head 07/01/2022 TECHNIQUE: Axial CT of the head from the skull base to the vertex without administration of intravenous contrast. Coronal and sagittal reformatted images were performed. One or more of the following dose reduction techniques were used: Automated exposure control, adjustment of the mA and/or kV according to patient size, use of iterative reconstruction technique. FINDINGS: Exam is mildly to moderately limited by motion artifact.No acute intracranial hemorrhage, mass effect, or midline shift. No large acute territorial ischemia, although this maybe undetectable in the hyperacute/acute phases. No large intracranial mass given limits of this exam without intravenous contrast. Moderate global volume loss with concordant ventriculomegaly, age-appropriate. Basilar cisterns are patent.Atheromatous calcifications of left vertebral distal internal carotid arteries. Mild periventricular chronic microangiopathy. Possible minimal mastoid air cell effusions and/or partial volume averaging artifact and/or motion artifact. Middle ears are clear. Calvarium is intact. Large amount of fluid within the left frontal sinus. Fluid and anterior left ethmoid air cells mild mucosal thickening in bilateral ethmoid air cells. Bilateral ocular globe lens replacement(s). IMPRESSION: No acute intracranial process. Review Statement Review Statement: I have independently reviewed and interpreted the labs/EKGs/imaging that were ordered by the ER provider. I have reviewed all outside records that are available currently in our EMR including imaging/notes/labs from previous visits. Plan Plan: 1. UTI - urine culture growth of gram negative rods, awaiting final report, rocephin 1G Q24H 2. Fall - due to dementia patient unable to remember if she passed out, EKG normal, troponins negative, no c/o of chest pain, likely due to #1 3. HLD - chronic, continue home medications 4. Hypothyroidism - chronic, continue home medications DVT Prophylaxis: Ambulation Time Spent: Greater than 80 minutes spent with patient, 50% of the time spent with this patient was devoted to counseling and coordination of care. [facility] Plannin minutes spent discussing advance care planning. Disposition: Admit to: Med/surg Observation Full Code Discussed Plan of Care with Dr. Dao Allison. Medications Medication Orders: Medications Ordered Category Date Time Status 0.9 % Sodium Chloride [Saline Flush] Meds 08/17/25 05:15 Active 1 syr IVF Q8HR Acetaminophen [Tylenol] Meds 08/16/25 19:17 Active 650 mg PO Q4H PRN Anastrozole [Arimidex] Meds 08/17/25 09:00 Active 1 mg PO DAILY Ceftriaxone/D5w 1 gm Premix [Rocephin 1 gm/50 ml D5w] Meds 08/16/25 22:00 Active 1 gm in 50 ml IV BEDTIME Cetirizine HCl [Zyrtec] Meds 08/16/25 21:15 Active 10 mg PO BEDTIME Escitalopram Oxalate [Lexapro] Meds 08/17/25 09:00 Active 5 mg PO DAILY Levothyroxine Sodium [Synthroid] Meds 08/17/25 06:00 Active 50 mcg PO QDAC2 Pravastatin Sodium [Pravachol] Meds 08/17/25 09:00 Active 80 mg PO DAILY
[2025-08-18 05:19] LABS: IMMATURE GRANULOCYTE # (AUTO) 0.0 (0.0-1.0); IMMATURE GRANULOCYTE % (AUTO) 0.3 % (0.0-5.0); RDW COEFFICIENT OF VARIATION 13.3 % (11.6-14.8)
[2025-08-18 05:32] LABS: CREATININE 0.67 mg/dL (0.60-1.30)
--- NOTE | 2025-08-18 09:29 | DCSUM ---
Admission Date Admission Date: 08/16/25 Discharge Date Discharge Date: 08/18/25 Admission Diagnosis Admission Diagnosis: 1. UTI 2. Fall 3. HLD 4. Hypothyroidism Discharge Diagnosis Discharge Diagnosis: 1. UTI - d/t E.coli, Rx sent for cefpodoxime 2. Fall - due to dementia patient unable to remember if she passed out, EKG normal, troponins negative, no c/o of chest pain, likely due to #1 3. HLD - chronic, stable 4. Hypothyroidism - chronic, stable Hospital Provider Hospital Provider: SEBASTIAN LOZOYA, [facility] [place] Primary Care Physician Primary Care Physician: EVAN ANG APRN Summary of History and Physical Summary of History and Physical: 89 yo female with pmh of dementia, hypothyroidism, HLD, presented to the ER following a fall. Due to dementia patient is poor historian and does not remember what happened. Struck her head and sustained a laceration to the L forehead. ERP closed with 3 sutures. Due to patient's inability to recall what happened and was unwitnessed fall, admitted to observation. Found to have UTI on UA on admission. Patient unable to provide HPI and ROS due to dementia. Denies any complaints at this time. Hospital Course Subjective: Urine culture growth of E.Coli ESBL negative. Sensitive to rocephin. Patient has received 2 doses total of rocephin. Started PO cefpodoxime 200 mg today, sent home with evening dose. Rx sent for 4 more days. No further falls. No syncope. EKG and tele normal. Troponins negative. Fall likely due to UTI. VSS. Mild leukocytosis on labs initially and is slowly improving. down to 10.6 today. 3 sutures to L forehead due to removal by 08/22-08/25. D/c home with son who lives nearby. Appearance: Pleasant, No Apparent Distress and Alert HEENT: MMM, Supple and No JVD CVS: No Murmur, No Rubs, No Gallop and No JVD Abdomen: Soft, Non-Tender and No Distention Respiratory: No Dyspnea Extremities: No Edema Vital Signs: Most Recent Vital Signs Temperature 97.1 F L 08/18/25 05:24 Temperature Source Temporal Artery Scan 08/18/25 05:24 Temperature Source Temporal Artery Scan 08/16/25 14:31 Pulse Rate 59 L 08/18/25 05:24 Respiratory Rate 18 08/18/25 05:24 Blood Pressure 139/89 08/18/25 05:24 Blood Pressure Mean 105 08/18/25 05:24 Blood Pressure Right Arm 153/80 08/16/25 20:15 Blood Pressure Location Right Arm 08/18/25 05:24 Blood Pressure Position Supine 08/18/25 05:24 O2 Sat by Pulse Oximetry 96 08/18/25 05:24 Oxygen Delivery Method Room Air 08/18/25 09:00 Height 5 ft 4 in 08/16/25 20:15 Weight 58.9 kg 08/16/25 20:15 Telemetry Type Remote Telemetry 08/18/25 07:00 Telemetry Monitoring Continues 08/18/25 07:00 Irregular Telemetry Rate (Approximate) 80-90 BPM 08/17/25 13:00 Telemetry Heart Rate 73 08/18/25 07:00 EKG VA Interval 0.18 08/18/25 07:00 EKG QRS Interval 0.07 08/18/25 07:00 Telemetry Strip Reading NSR 08/18/25 07:00 Imaging: CT HEAD WITHOUT CONTRAST INDICATION: 89-year-old female patient fall from standing onto forehead 6 hours ago COMPARISON: CT head 07/01/2022 TECHNIQUE: Axial CT of the head from the skull base to the vertex without administration of intravenous contrast. Coronal and sagittal reformatted images were performed. One or more of the following dose reduction techniques were used: Automated exposure control, adjustment of the mA and/or kV according to patient size, use of iterative reconstruction technique. FINDINGS: Exam is mildly to moderately limited by motion artifact.No acute intracranial hemorrhage, mass effect, or midline shift. No large acute territorial ischemia, although this maybe undetectable in the hyperacute/acute phases. No large intracranial mass given limits of this exam without intravenous contrast. Moderate global volume loss with concordant ventriculomegaly, age-appropriate. Basilar cisterns are patent.Atheromatous calcifications of left vertebral distal internal carotid arteries. Mild periventricular chronic microangiopathy. Possible minimal mastoid air cell effusions and/or partial volume averaging artifact and/or motion artifact. Middle ears are clear. Calvarium is intact. Large amount of fluid within the left frontal sinus. Fluid and anterior left ethmoid air cells mild mucosal thickening in bilateral ethmoid air cells. Bilateral ocular globe lens replacement(s). IMPRESSION: No acute intracranial process. Lab Results Last 24 Hours: 08/18/25 04:59 WBC 10.68 H RBC 3.88 L Hgb 12.1 Hct 37.8 MCV 97.4 MCH 31.2 H MCHC 32.0 RDW Coeff of Mariah 13.3 Plt Count 338 Immature Gran % (Auto) 0.3 Neut % (Auto) 56.8 Lymph % (Auto) 28.0 [place] % (Auto) 11.2 H Eos % (Auto) 3.1 Baso % (Auto) 0.6 Neut # (Auto) 6.1 Lymph # (Auto) 3.0 [place] # (Auto) 1.2 Eos # (Auto) 0.3 Baso # (Auto) 0.1 Immature Gran # (Auto) 0.0 Sodium 136.3 Potassium 3.98 Chloride 108.1 H Carbon Dioxide 25.9 Anion Gap 6.28 BUN 17.2 H Creatinine 0.67 Estimated GFR (MDRD) 83.00 BUN/Creatinine Ratio 25.67 Glucose 113.7 H Calcium 8.89 Total Bilirubin 0.32 AST 22.4 ALT 15.7 Alkaline Phosphatase 64.7 Total Protein 6.43 Albumin 3.42 L Globulin 3.01 Albumin/Globulin Ratio 1.13 Discharge Instructions Discharge Planning: Discharge Planning > 40 minutes If patient is discharged with left ventricular systolic dysfunction: na Discharged with a beta daria? [] If no, why not? [] Discharged with an cleopatra/arb? [] If no, why not? [] Discharge Medications: Medications at Discharge (Home Meds & RX) cetirizine 10 mg tablet (Zyrtec) 10 mg PO BEDTIME 07/01/22 fluticasone propionate 50 mcg/actuation nasal spray,suspension (Flonase Allergy Relief) 1 spray intranasal QDAY PRN allergy symptoms 01/17/23 levothyroxine 50 mcg tablet See Rx Instructions .Route .COMPLEX #30 tabs 08/20/24 anastrozole 1 mg tablet 1 mg PO DAILY #30 tabs 03/25/25 pravastatin 80 mg tablet 80 mg PO DAILY #30 tabs 03/25/25 escitalopram oxalate 10 mg tablet 5 mg (1/2 x 10 mg) PO DAILY #15 tabs 05/23/25 cefpodoxime 200 mg tablet 200 mg PO BID 4 days #8 tabs 08/18/25 Discharge Plan Discharge Discharge Orders: Discharge Patient (ONCE); Ordered 08/18/25 Ordered By: AUSTIN MARTINEZ Activity Restrictions/Additional Instructions: Diagnosis: UTI, Fall Diet: Regular Activity as tolerated. Medications: Lewis Mane * Cefpodoxime 200 mg twice a day - next dose due tonight, order picker/assembler 4 more days worth at pharmacy Sutures will need to be taken out between 08/22/25 and 08/25/25. Wash gently daily with soap and water. Apply neosporin/triple antibiotic ointment to assist with healing. Follow up with primary care provider this week. Instructions: Urinary Tract Infection in Women (GEN) Patient Disposition: HOME WITH FAMILY CARE Prescriptions: New cefpodoxime 200 mg Tablet 200 mg PO BID 4 Days Qty: 8 0RF Rx Instructions: must administer with a meal/food Continued levothyroxine 50 mcg tablet See Rx Instructions .ROUTE .COMPLEX Qty: 30 10RF Dose Instruction: TAKE ONE (1) TABLET BY MOUTH DAILY Rx Instructions: TAKE ONE (1) TABLET BY MOUTH DAILY pravastatin 80 mg tablet 80 mg PO DAILY Qty: 30 10RF anastrozole 1 mg tablet 1 mg PO DAILY Qty: 30 10RF escitalopram oxalate 10 mg tablet 5 mg PO DAILY Qty: 15 2RF cetirizine [Zyrtec] 10 mg Tablet 10 mg PO BEDTIME fluticasone propionate [Flonase Allergy Relief] 50 mcg/actuation spray,suspension 1 spray intranasal QDAY PRN (Reason: allergy symptoms) Rx Instructions: administer into each nostril Did you review [place] CLAIMS TECHNICIAN for ALL controlled substances?: No Discussed opioids are addictive and Narcan is available by prescription or from pharmacy.: No Condition: Fair
[2025-08-18 10:37] VITALS: BP 124/63; PULSE 89; RESP 16; TEMP 97.4
[2025-08-18] MEDS: CEFPODOXIME PROXETIL PO ONE ×2 (12:11→12:12)
[2025-08-18] MEDS: CEFPODOXIME PROXETIL ONE (14:12)
== END 2025-08-18 12:45 | disposition home or self-care (01) ==
LOC: MEDSURG B 13:45 → ED 13:45 → MEDSURG B 20:12
PROVIDERS: ADMIT Hospitalist; ATTEND Nurse Practitioner Family